=== PATIENT | female | born 1935 | race Caucasian/White ===

== ENCOUNTER → 2016-08-04 | Outpatient (CLI) | payer OTHER ==
[2016-08-04 11:27] LABS: Basophils # (auto) 0 uL; Basophils % (auto) 0.2 % (0.0-2.0); Eosinophils # (auto) 0 uL; Eosinophils % (auto) 0.8 % (0.0-7.0); Hematocrit 44.9 % (36.0-46.0); Hemoglobin 14.7 g/dL (12.2-16.2); Lymphocytes # (auto) 0.7 uL; Lymphocytes % (auto) 16.1 % (10.0-50.0); Mean Corpuscular Hemoglobin 28.7 pg (28.0-32.0); Mean Corpuscular Hgb Conc. 32.7 g/dL (32.0-36.0); Mean Corpuscular Volume 87.8 fL (80.0-100.0); Mean Platelet Volume 9.2 fL (7.4-10.4); Monocytes # (auto) 0.3 uL; Monocytes % (auto) 6.8 % (0.0-12.0); Neutrophils # (auto) 3.5 uL; Neutrophils % (auto) 76.1 % (37.0-80.0); Platelet Count (auto) 257 10^3/uL (140-450); Red Cell Distribution Width 15.8 % (11.6-16.0); SUSPECT VIEW TRANSMISSION; White Blood Cell 4.6 10^3/uL (4.4-10.8)
[2016-08-04 12:05] LABS: Albumin 3.9 g/dL (3.4-5.0); BUN/Creatinine Ratio 26.3; Bilirubin, Total 0.4 mg/dL (0.2-1.0); Calcium 9.3 mg/dL (8.5-10.1); Potassium 4.2 mmol/L (3.5-5.1)
== END | disposition home or self-care (01) ==
LOC: LAB 10:53
PROVIDERS: ATTEND Internal Medicine Gastroenterology
DX: K51.919 Ulcerative colitis, unspecified with unspecified complications (principal)
CPT/HCPCS: 36415; 80053; 85025; 86141

== ENCOUNTER → 2017-01-19 | Outpatient (CLI) | payer OTHER ==
[2017-01-19 11:44] LABS: Basophils # (auto) 0 uL; Basophils % (auto) 0.4 % (0.0-2.0); CONDITION Y; Eosinophils # (auto) 0 uL; Hematocrit 43.3 % (36.0-46.0); Hemoglobin 14.2 g/dL (12.2-16.2); Lymphocytes # (auto) 0.8 uL; Lymphocytes % (auto) 18.8 % (10.0-50.0); Mean Corpuscular Hemoglobin 28.3 pg (28.0-32.0); Mean Corpuscular Hgb Conc. 32.7 g/dL (32.0-36.0); Mean Corpuscular Volume 86.3 fL (80.0-100.0); Mean Platelet Volume 8.3 fL (7.4-10.4); Monocytes # (auto) 0.4 uL; Monocytes % (auto) 8.2 % (0.0-12.0); Neutrophils # (auto) 3.1 uL; Neutrophils % (auto) 71.6 % (37.0-80.0); Platelet Count (auto) 253 10^3/uL (140-450); Red Cell Distribution Width 16.5 % (11.6-16.0); White Blood Cell 4.3 10^3/uL (4.4-10.8)
[2017-01-19 12:10] LABS: Albumin 3.6 g/dL (3.4-5.0); BUN/Creatinine Ratio 20.8; Bilirubin, Total 0.3 mg/dL (0.2-1.0); Potassium 4.8 mmol/L (3.5-5.1); Total Protein 7.9 g/dL (6.4-8.2)
== END | disposition home or self-care (01) ==
LOC: LAB 11:30
DX: I10 Essential (primary) hypertension (principal); M06.9 Rheumatoid arthritis, unspecified; M25.50 Pain in unspecified joint; D64.9 Anemia, unspecified; Z79.899 Other long term (current) drug therapy
CPT/HCPCS: 36415; 80053; 85025; 85652; 86141

== ENCOUNTER → 2017-03-16 | Outpatient (CLI) | payer OTHER ==
[2017-03-16 12:13] LABS: Basophils # (auto) 0 uL; Basophils % (auto) 0.6 % (0.0-2.0); Eosinophils # (auto) 0 uL; Eosinophils % (auto) 0.7 % (0.0-7.0); Hematocrit 44.3 % (36.0-46.0); Hemoglobin 14.8 g/dL (12.2-16.2); Lymphocytes # (auto) 0.7 uL; Lymphocytes % (auto) 17.9 % (10.0-50.0); Mean Corpuscular Hemoglobin 29.5 pg (28.0-32.0); Mean Corpuscular Hgb Conc. 33.4 g/dL (32.0-36.0); Mean Corpuscular Volume 88.2 fL (80.0-100.0); Monocytes # (auto) 0.3 uL; Monocytes % (auto) 7.6 % (0.0-12.0); Neutrophils # (auto) 2.9 uL; Neutrophils % (auto) 73.2 % (37.0-80.0); Nucleated Red Blood Cells % 0.1 %; Platelet Count (auto) 249 10^3/uL (140-450); Red Cell Distribution Width 17.6 % (11.6-16.0)
[2017-03-16 12:37] LABS: Albumin 3.5 g/dL (3.4-5.0); BUN/Creatinine Ratio 18.9; Bilirubin, Total 0.4 mg/dL (0.2-1.0); Calcium 8.9 mg/dL (8.5-10.1); Potassium 4.6 mmol/L (3.5-5.1); Total Protein 7.9 g/dL (6.4-8.2)
== END | disposition home or self-care (01) ==
LOC: LAB 11:49
DX: I10 Essential (primary) hypertension (principal); M06.9 Rheumatoid arthritis, unspecified; D64.9 Anemia, unspecified; M25.50 Pain in unspecified joint; Z79.899 Other long term (current) drug therapy
CPT/HCPCS: 36415; 80053; 85025; 85652; 86141

== ENCOUNTER → 2017-04-30 | Outpatient (CLI) | payer OTHER ==
[2017-04-30 10:50] LABS: Cholesterol 178 mg/dL (< 200); HDL Cholesterol 66 mg/dL (40-59); LDL Cholesterol 111 mg/dL (< 100); Triglycerides 115 mg/dL (< 150)
== END | disposition home or self-care (01) ==
LOC: LAB 10:14
PROVIDERS: ATTEND Internal Medicine
DX: E78.9 Disorder of lipoprotein metabolism, unspecified (principal); M06.9 Rheumatoid arthritis, unspecified; R94.6 Abnormal results of thyroid function studies; E55.9 Vitamin D deficiency, unspecified
CPT/HCPCS: 36415; 80061; 82306; 84443

== ENCOUNTER → 2017-05-09 | Outpatient (CLI) | payer OTHER | END | disposition home or self-care (01) | LOC: LAB 13:59 | PROVIDERS: ATTEND Internal Medicine | DX: E78.9 Disorder of lipoprotein metabolism, unspecified (principal); M06.9 Rheumatoid arthritis, unspecified | CPT/HCPCS: 82270 ==

== ENCOUNTER → 2017-10-23 | Outpatient (CLI) | payer OTHER | END | disposition home or self-care (01) | LOC: LAB 11:02 | PROVIDERS: ATTEND Physician Assistant | DX: L72.3 Sebaceous cyst (principal) ==

== ENCOUNTER → 2018-02-13 | Outpatient (CLI) | payer OTHER ==
[2018-02-13 14:05] LABS: Basophils # (auto) 0 uL; Basophils % (auto) 0.3 % (0.0-2.0); Eosinophils # (auto) 0 uL; Eosinophils % (auto) 0.7 % (0.0-7.0); Hematocrit 46.1 % (36.0-46.0); Hemoglobin 15.4 g/dL (12.2-16.2); Lymphocytes % (auto) 17.4 % (10.0-50.0); Mean Corpuscular Hemoglobin 28.4 pg (28.0-32.0); Mean Corpuscular Hgb Conc. 33.3 g/dL (32.0-36.0); Mean Corpuscular Volume 85.1 fL (80.0-100.0); Monocytes # (auto) 0.3 uL; Neutrophils # (auto) 4.3 uL; Neutrophils % (auto) 76.6 % (37.0-80.0); Platelet Count (auto) 204 10^3/uL (140-450); Red Blood Cells 5.41 10^6/uL (4.0-5.20); Red Cell Distribution Width 15.1 % (11.8-14.3); White Blood Cell 5.6 10^3/uL (4.4-10.8)
[2018-02-13 15:23] LABS: Albumin 3.3 g/dL (3.4-5.0); BUN/Creatinine Ratio 10.8; Bilirubin, Total 0.5 mg/dL (0.2-1.0); CRP High Sensitivity 2.64 mg/dL (< 0.3); Calcium 8.7 mg/dL (8.5-10.1); Potassium 3.7 mmol/L (3.5-5.1); Total Protein 8.1 g/dL (6.4-8.2)
== END | disposition home or self-care (01) ==
LOC: LAB 13:48
PROVIDERS: ATTEND Internal Medicine
DX: M06.9 Rheumatoid arthritis, unspecified (principal); I10 Essential (primary) hypertension
CPT/HCPCS: 36415; 80053; 85025; 85652; 86141

== ENCOUNTER → 2018-03-12 | Outpatient (CLI) | payer OTHER ==
[2018-03-12 10:54] LABS: Basophils # (auto) 0.1 uL; Basophils % (auto) 0.7 % (0.0-2.0); Eosinophils # (auto) 0 uL; Eosinophils % (auto) 0.4 % (0.0-7.0); Hematocrit 41.1 % (36.0-46.0); Hemoglobin 13.5 g/dL (12.2-16.2); Lymphocytes # (auto) 0.8 uL; Lymphocytes % (auto) 10.5 % (10.0-50.0); Mean Corpuscular Hemoglobin 27.7 pg (28.0-32.0); Mean Corpuscular Hgb Conc. 32.9 g/dL (32.0-36.0); Mean Corpuscular Volume 84.1 fL (80.0-100.0); Monocytes # (auto) 0.4 uL; Monocytes % (auto) 5.4 % (0.0-12.0); Neutrophils # (auto) 6.6 uL; Platelet Count (auto) 430 10^3/uL (140-450); Red Blood Cells 4.89 10^6/uL (4.0-5.20); Red Cell Distribution Width 14.1 % (11.8-14.3)
[2018-03-12 11:30] LABS: Albumin 2.6 g/dL (3.4-5.0); BUN/Creatinine Ratio 19.7; Bilirubin, Total 0.5 mg/dL (0.2-1.0); CRP High Sensitivity 14.9 mg/dL (< 0.3); Calcium 9.3 mg/dL (8.5-10.1); Potassium 4.2 mmol/L (3.5-5.1); Total Protein 8.5 g/dL (6.4-8.2)
== END | disposition home or self-care (01) ==
LOC: LAB 10:13
PROVIDERS: ATTEND Internal Medicine
DX: Z12.11 Encounter for screening for malignant neoplasm of colon (principal); M06.9 Rheumatoid arthritis, unspecified; J44.9 Chronic obstructive pulmonary disease, unspecified; E55.9 Vitamin D deficiency, unspecified; E78.5 Hyperlipidemia, unspecified
CPT/HCPCS: 36415; 80053; 80061; 82043; 82274; 82306; 83036; 84443; 85025; 85652; 86141

== ENCOUNTER → 2018-05-06 | Outpatient (CLI) | payer OTHER ==
[2018-05-06 13:08] LABS: Basophils # (auto) 0 uL; Basophils % (auto) 0.2 % (0.0-2.0); Eosinophils # (auto) 0.1 uL; Eosinophils % (auto) 0.9 % (0.0-7.0); Hemoglobin 11.9 g/dL (12.2-16.2); Lymphocytes # (auto) 0.9 uL; Lymphocytes % (auto) 17.2 % (10.0-50.0); Mean Corpuscular Hemoglobin 27.5 pg (28.0-32.0); Mean Corpuscular Hgb Conc. 32.2 g/dL (32.0-36.0); Mean Corpuscular Volume 85.4 fL (80.0-100.0); Monocytes # (auto) 0.2 uL; Monocytes % (auto) 4.1 % (0.0-12.0); Neutrophils # (auto) 4.1 uL; Neutrophils % (auto) 77.6 % (37.0-80.0); Nucleated Red Blood Cells % 0.2 %; Platelet Count (auto) 406 10^3/uL (140-450); Red Blood Cells 4.34 10^6/uL (4.0-5.20); Red Cell Distribution Width 18.9 % (11.8-14.3); White Blood Cell 5.3 10^3/uL (4.4-10.8)
== END | disposition home or self-care (01) ==
LOC: LAB 11:51
PROVIDERS: ATTEND Internal Medicine Gastroenterology
DX: K51.912 Ulcerative colitis, unspecified with intestinal obstruction (principal)
CPT/HCPCS: 36415; 85025

== ENCOUNTER → 2018-11-19 | Outpatient (CLI) | payer OTHER ==
[2018-11-19 16:30] LABS: Basophils # (auto) 0 uL; Basophils % (auto) 0.5 % (0.0-2.0); Eosinophils # (auto) 0 uL; Eosinophils % (auto) 0.8 % (0.0-7.0); Hematocrit 41.3 % (36.0-46.0); Hemoglobin 13.4 g/dL (12.2-16.2); Lymphocytes # (auto) 0.9 uL; Lymphocytes % (auto) 21.7 % (10.0-50.0); Mean Corpuscular Hemoglobin 28.7 pg (28.0-32.0); Mean Corpuscular Hgb Conc. 32.6 g/dL (32.0-36.0); Monocytes # (auto) 0.3 uL; Monocytes % (auto) 5.9 % (0.0-12.0); Neutrophils # (auto) 3.1 uL; Neutrophils % (auto) 71.1 % (37.0-80.0); Platelet Count (auto) 253 10^3/uL (140-450); Red Blood Cells 4.69 10^6/uL (4.0-5.20); Red Cell Distribution Width 17.5 % (11.8-14.3); White Blood Cell 4.4 10^3/uL (4.4-10.8)
[2018-11-19 16:42] LABS: Albumin 3.3 g/dL (3.4-5.0); BUN/Creatinine Ratio 20.6; Calcium 8.8 mg/dL (8.5-10.1); Potassium 4.2 mmol/L (3.5-5.1)
[2018-11-19 16:45] LABS: Bilirubin, Total 0.4 mg/dL (0.2-1.0); Total Protein 7.9 g/dL (6.4-8.2)
== END | disposition home or self-care (01) ==
LOC: LAB 15:41
PROVIDERS: ATTEND Internal Medicine Gastroenterology
DX: K51.912 Ulcerative colitis, unspecified with intestinal obstruction (principal)
CPT/HCPCS: 36415; 80053; 85025

== ENCOUNTER → 2019-05-19 | Outpatient (CLI) | payer OTHER ==
[2019-05-19 16:09] LABS: Basophils # (auto) 0 uL; Basophils % (auto) 0.4 % (0.0-2.0); Eosinophils # (auto) 0 uL; Eosinophils % (auto) 0.7 % (0.0-7.0); Hematocrit 42.9 % (36.0-46.0); Hemoglobin 14.1 g/dL (12.2-16.2); Lymphocytes # (auto) 0.9 uL; Lymphocytes % (auto) 18.8 % (10.0-50.0); Mean Corpuscular Hemoglobin 28.5 pg (28.0-32.0); Mean Corpuscular Hgb Conc. 32.9 g/dL (32.0-36.0); Mean Corpuscular Volume 86.5 fL (80.0-100.0); Monocytes # (auto) 0.3 uL; Monocytes % (auto) 7.5 % (0.0-12.0); Neutrophils # (auto) 3.3 uL; Neutrophils % (auto) 72.6 % (37.0-80.0); Platelet Count (auto) 271 10^3/uL (140-450); Red Blood Cells 4.96 10^6/uL (4.0-5.20); White Blood Cell 4.6 10^3/uL (4.4-10.8)
[2019-05-19 16:28] LABS: Albumin 3.3 g/dL (3.4-5.0); Calcium 9.4 mg/dL (8.5-10.1); Potassium 3.9 mmol/L (3.5-5.1)
[2019-05-19 16:31] LABS: BUN/Creatinine Ratio 18.8; Bilirubin, Total 0.2 mg/dL (0.2-1.0); Total Protein 7.7 g/dL (6.4-8.2)
== END | disposition home or self-care (01) ==
LOC: LAB 15:36
PROVIDERS: ATTEND Internal Medicine Gastroenterology
DX: K51.919 Ulcerative colitis, unspecified with unspecified complications (principal)
CPT/HCPCS: 36415; 80053; 85025

== ENCOUNTER → 2019-12-15 | Outpatient (CLI) | payer OTHER ==
[2019-12-15 14:01] LABS: Basophils # (auto) 0 10 ^3/uL (0-0.2); Basophils % (auto) 0.6 % (0.0-2.0); Eosinophils # (auto) 0 10 ^3/uL (0-0.8); Eosinophils % (auto) 0.5 % (0.0-7.0); Hematocrit 45.6 % (36.0-46.0); Hemoglobin 14.8 g/dL (12.2-16.2); Lymphocytes % (auto) 15.6 % (10.0-50.0); Mean Corpuscular Hemoglobin 27.2 pg (28.0-32.0); Mean Corpuscular Hgb Conc. 32.3 g/dL (32.0-36.0); Mean Corpuscular Volume 84.1 fL (80.0-100.0); Monocytes # (auto) 0.4 10 ^3/uL (0-1.3); Monocytes % (auto) 5.7 % (0.0-12.0); Neutrophils % (auto) 77.6 % (37.0-80.0); Nucleated Red Blood Cells % 0.1 %; Platelet Count (auto) 249 10^3/uL (140-450); Red Blood Cells 5.42 10^6/uL (4.0-5.20); Red Cell Distribution Width 17.6 % (11.8-14.3); White Blood Cell 6.4 10^3/uL (4.4-10.8)
[2019-12-15 14:35] LABS: Albumin 3.5 g/dL (3.4-5.0); BUN/Creatinine Ratio 19.2; Calcium 9.5 mg/dL (8.5-10.1); Potassium 4.5 mmol/L (3.5-5.1)
[2019-12-15 14:38] LABS: Bilirubin, Total 0.5 mg/dL (0.2-1.0); Total Protein 8.2 g/dL (6.4-8.2)
== END | disposition home or self-care (01) ==
LOC: LAB 13:34
PROVIDERS: ATTEND Internal Medicine Gastroenterology
DX: K51.919 Ulcerative colitis, unspecified with unspecified complications (principal)
CPT/HCPCS: 36415; 80053; 85025

== ENCOUNTER → 2020-01-29 | Outpatient (CLI) | payer OTHER ==
[~2020-01-29] MED LIST: ATO40T PO; CHOL20009 PO; CITA-30 PO; ESTR1TAB5 PO; MULT0.07 PO
[2020-01-29 13:16] LABS: Cholesterol 253 mg/dL (< 200); HDL Cholesterol 54 mg/dL (40-59); LDL Cholesterol 168 mg/dL (< 100); Triglycerides 141 mg/dL (< 150)
== END | disposition home or self-care (01) ==
LOC: LAB 11:46
PROVIDERS: ATTEND Internal Medicine
DX: E78.49 Other hyperlipidemia (principal); R30.0 Dysuria; M06.9 Rheumatoid arthritis, unspecified
CPT/HCPCS: 36415; 80061; 82306; 84443

== ENCOUNTER → 2020-02-03 | Outpatient (CLI) | payer OTHER | END | disposition home or self-care (01) | LOC: LAB 13:53 | PROVIDERS: ATTEND Surgery | DX: K51.919 Ulcerative colitis, unspecified with unspecified complications (principal) | CPT/HCPCS: 82274; 87086 ==

== ENCOUNTER 2020-03-10 12:06 | Inpatient (IN) | payer OTHER ==
[~2020-03-10] VITALS: Ht 160 cm; Wt 60.2 kg
[2020-03-10 12:49] LABS: Basophils # (auto) 0 10 ^3/uL (0-0.2); Basophils % (auto) 0.3 % (0.0-2.0); Eosinophils # (auto) 0 10 ^3/uL (0-0.8); Hematocrit 43.5 % (36.0-46.0); Hemoglobin 14.2 g/dL (12.2-16.2); Lymphocytes # (auto) 0.9 10 ^3/uL (0.4-5.4); Lymphocytes % (auto) 11.3 % (10.0-50.0); Mean Corpuscular Hemoglobin 27.2 pg (28.0-32.0); Mean Corpuscular Hgb Conc. 32.8 g/dL (32.0-36.0); Mean Corpuscular Volume 82.9 fL (80.0-100.0); Monocytes # (auto) 0.6 10 ^3/uL (0-1.3); Monocytes % (auto) 7.9 % (0.0-12.0); Neutrophils # (auto) 6.2 10 ^3/uL (1.6-8.6); Neutrophils % (auto) 80.5 % (37.0-80.0); Platelet Count (auto) 324 10^3/uL (140-450); Red Blood Cells 5.24 10^6/uL (4.0-5.20); Red Cell Distribution Width 15.6 % (11.8-14.3); White Blood Cell 7.7 10^3/uL (4.4-10.8)
[2020-03-10 13:08] LABS: Albumin 2.8 g/dL (3.4-5.0); Calcium 9.4 mg/dL (8.5-10.1)
[2020-03-10 13:11] LABS: Amylase 21 U/L (25-115); Lipase 55 U/L (73-393); Magnesium 2.5 mg/dL (1.6-2.6)
[2020-03-10 13:13] LABS: BUN/Creatinine Ratio 24.7; Bilirubin, Total 0.7 mg/dL (0.2-1.0); INR 1.08 (0.9-1.15); Total Protein 8.2 g/dL (6.4-8.2)
[2020-03-10] MEDS ORDERED: ONDANSETRON HCL 4 MG/2 ML VIAL IV ONE (15:45)
[2020-03-10] MEDS ORDERED: cefTRIAXone 1GM/50ML D5W 50 ML IV ONE (15:45)
[2020-03-10] MEDS ORDERED: metroNIDAZOLE 500MG/100ML 100 ML IV ONE (15:45)
[2020-03-10] MEDS ORDERED: MORPHINE SULF INJ 2 MG/ML SYRINGE 1ML IV ONE (15:45)
[2020-03-10] MEDS ORDERED: ALUM & MAG HYDROX-SIMETH LIQ(MAALOX) 30 ML PO PRN (16:15)
[2020-03-10] MEDS ORDERED: LACTATED RINGER'S 1,000 ML IV ONE (16:15)
[2020-03-10] MEDS ORDERED: MORPHINE SULF INJ 2 MG/ML SYRINGE 1ML IV PRN (16:15)
[2020-03-10] MEDS ORDERED: LORazepam 0.5 MG TAB PO PRN (16:15)
[2020-03-10] MEDS ORDERED: NITROGLYCERIN 0.4 MG SL TAB SL PRN (16:15)
[2020-03-10] MEDS ORDERED: HYDROcodone-ACET 5/325MG TAB PO PRN (16:15)
[2020-03-10] MEDS ORDERED: ACETAMINOPHEN 325 MG TAB PO PRN (16:15)
[2020-03-10] MEDS ORDERED: DOCUSATE SOD 100 MG CAP PO PRN (16:15)
[2020-03-10 17:00] LABS: Amphetamine Screen, Urine NEGATIVE (NEGATIVE); Barbiturate Scree,Urine NEGATIVE (NEGATIVE); Benzodiazephine Screen, Urine NEGATIVE (NEGATIVE); Cannabinoid Screen, Urine POSITIVE (NEGATIVE); Cocaine Screen, Urine NEGATIVE (NEGATIVE); Opiate Scree,Urine NEGATIVE (NEGATIVE); Phencyclidine Screen, Urine NEGATIVE (NEGATIVE)
[2020-03-10] MEDS ORDERED: ESTR1TAB5 PO (17:17)
[2020-03-10] MEDS ORDERED: ATO40T PO (17:17)
[2020-03-10] MEDS ORDERED: CITA-30 PO (17:17)
[2020-03-10] MEDS ORDERED: MULT0.07 PO (17:21)
[2020-03-10] MEDS ORDERED: CHOL20009 PO (17:21)
[2020-03-10 17:38] LABS: Urine Bacteria NONE SEEN /hpf (None Seen); Urine Blood 2+ /uL (Negative); Urine Mucus MODERATE (None Seen); Urine WBC 2419 /hpf (0 - 5); Urine WBC Clumps PRESENT /hpf (None Seen)
[2020-03-10 17:39] LABS: Urine Specific Gravity 1.025 (1.001-1.035)
[2020-03-10] MEDS: SODIUM CHLORIDE 0.9% 1,000 ML IV SCH (18:22)
[2020-03-10] MEDS: MORPHINE SULF INJ 2 MG/ML SYRINGE 1ML IV PRN (20:05)
[2020-03-10] MEDS: metroNIDAZOLE 500MG/100ML 100 ML IV SCH (22:00)
[2020-03-10] MEDS: FAMOTIDINE (10MG/ML) 2ML VL IV SCH (22:18)
--- NOTE | 2020-03-10 22:34 | NUR ---
Telemetry admit from [place] admitted to Telemetry unit. Patient oriented to Monse Paredes RN primary RN, unit, room, bed, and unit policies regarding patient care and visiting hours. Patient now on continuous telemetry monitoring, tele box #37. Patient weighed by bedscale and encouraged to call if they need something. All questions and concerns addressed, patient verbalized understanding. NG tube connected to low continuous suction. Bed is in lowest locked position with bed rails up x2 and call light is within reach of the patient. Patient understands that she is NPO.
[2020-03-10 22:44] LABS: Cholesterol 143 mg/dL (< 200); HDL Cholesterol 34 mg/dL (40-59); LDL Cholesterol 97 mg/dL (< 100); Triglycerides 88 mg/dL (< 150)
--- NOTE | 2020-03-10 22:45 | NUR ---
Flagyl: Administered remainder of the Flagyl after patient brought up from the ER. Patient tolerated well.
[2020-03-10 23:00] VITALS: BP 126/75
[2020-03-11] MEDS: MORPHINE SULF INJ 2 MG/ML SYRINGE 1ML IV PRN ×5 (00:23→20:08)
[2020-03-11 05:00] VITALS: BP 129/62
[2020-03-11] MEDS: metroNIDAZOLE 500MG/100ML 100 ML IV SCH ×3 (05:29→21:42)
[2020-03-11] MEDS: SODIUM CHLORIDE 0.9% 1,000 ML IV SCH ×2 (05:30→20:12)
--- NOTE | 2020-03-11 08:00 | NUR ---
Opening Shift Note Assumed care of patient, awake, alert and oriented X4. No S/S of distress/SOB, complains of generalized abdominal pain, 8/10, informed will medicate with prescribed pain medication when due, verbalized understanding. Tele# 37, sinus rhythm @ 69 bpm. Right nare NGT to LIS, draining brown drainage. IV to left antecubital, 20 gauge, patent and infusing 0.9% NS @ 75 ml/hr. Instructed on POC and to call for assist PRN, verbalized understanding. Bed locked, in lowest position, call light within reach, will continue to monitor for changes Q1hr and PRN.
[2020-03-11 09:00] VITALS: BP 117/63
--- NOTE | 2020-03-11 09:50 | NUR ---
ROUNDS Dr Huerta at bedside for rounds, new orders received and followed through. Patient updated on plan of care, verbalized understanding.
[2020-03-11] MEDS: CITALOPRAM HYDROBR 20 MG TAB PO SCH (10:00)
[2020-03-11] MEDS: CHOLECALCIFEROL (VITD3) 2,000 UNIT CAP PO SCH (10:00)
[2020-03-11] MEDS: levoFLOXacin 500MG 100 ML IV SCH (10:18)
[2020-03-11] MEDS: FAMOTIDINE (10MG/ML) 2ML VL IV SCH ×2 (10:18→21:42)
--- NOTE | 2020-03-11 12:30 | NUR ---
PICC line placement Patient/Patient significant other educated on need for PICC line placement. All risks and benefits explained and all questions and concerns addressed prior to procedure. Noted past medical history and allergies with no contraindications. INR and Plt counts within acceptable range. 5 fr PICC line inserted via RIGHT BASILIC vein using [facility] [employer] US and Tip Location System. Sterile technique with maximum barrier precautions utilized. Blood return obtained from each of DOUBLE lumens and each flushed easily with NS using proper technique. PICC secured with Stat-lock; biodisc and occlusive dressing applied. Stat portable chest x-ray obtained for PICC tip placement. *Baseline Arm Circumference 21CM. *INTERNAL LENGHT 37 CM *EXTERNAL LENGHT 0 CM *PICC lot # [id number]. Note:
[2020-03-11] MEDS ORDERED: LIDOCAINE 1% (LOCAL ANESTH.) PF 5ml SDV ID ONE (12:45)
[2020-03-11 13:00] VITALS: BP 137/71
--- NOTE | 2020-03-11 13:39 | NUR ---
OK to use PICC line Xray completed. OK to use PICC line. Jenna BRYANT notified.
--- NOTE | 2020-03-11 14:24 | NUR ---
Nutrition Assessment Notes Please refer to link for full assessment notes. Est Energy needs: 8227-4811 kcals (23-25 kcal/kgBW) Est Protein needs: 48-52 gms/day (1.0-1.1 gm/kgBW) Will continue to monitor and reassess prn. Addendum: 03/11/20 at [address] Amended: Links added.
[2020-03-11 17:00] VITALS: BP 124/66
--- NOTE | 2020-03-11 17:54 | NUR ---
GI Dr Milad Chang at bedside for GI consult, new orders received and followed through. Patient updated on plan of care, verbalized understanding.
[2020-03-11] MEDS ORDERED: CLINIMIX PER PHARMACY 0 ML IV SCH (18:00)
--- NOTE | 2020-03-11 19:17 | NUR ---
Care endorsed to MANNY Shea, night nurse.
--- NOTE | 2020-03-11 19:45 | NUR ---
Opening Shift Note Assumed care of patient, awake and alert. No S/S of distress/SOB noted. NG tube connected to LCS. Bed is in lowest locked position with bed rails up x2 and call light is within reach. Instructed on POC and to call for assist PRN.
[2020-03-11] MEDS ORDERED: AMINO ACID INFUSION IN D5W 2,000 ML IV NR (20:00)
[2020-03-11] MEDS: SODIUM CHLOR 0.9% PF (SALINE LOCK) 10ML VIAL/SYR IV SCH (21:42)
[2020-03-11] MEDS: ATORVASTATIN 20 MG TAB PO SCH (21:42)
[2020-03-11] MEDS: ONDANSETRON HCL 4 MG/2 ML VIAL IV PRN (21:55)
[2020-03-11 22:00] VITALS: BP 120/65
[2020-03-11] MEDS: InsuLIN REG 1unit/0.01ml Soln (100units/ml) SC SCH (23:58)
[2020-03-11] MEDS: ACCU-CHEK COMFORT CURVE STRIP VI SCH (23:58)
[2020-03-12] MEDS ORDERED: DEXTROSE (50%) 50ML SYRG IV SCH
[2020-03-12] MEDS: MORPHINE SULF INJ 2 MG/ML SYRINGE 1ML IV PRN ×5 (00:09→20:18)
[2020-03-12 04:55] VITALS: BP 141/74
[2020-03-12] MEDS: ACCU-CHEK COMFORT CURVE STRIP VI SCH ×4 (05:23→23:51)
[2020-03-12] MEDS: InsuLIN REG 1unit/0.01ml Soln (100units/ml) SC SCH ×4 (05:23→23:52)
[2020-03-12] MEDS: metroNIDAZOLE 500MG/100ML 100 ML IV SCH ×3 (05:38→21:38)
[2020-03-12 06:19] LABS: Basophils # (auto) 0 10 ^3/uL (0-0.2); Basophils % (auto) 0.4 % (0.0-2.0); Eosinophils # (auto) 0 10 ^3/uL (0-0.8); Eosinophils % (auto) 0.3 % (0.0-7.0); Hematocrit 38.6 % (36.0-46.0); Hemoglobin 12.5 g/dL (12.2-16.2); Lymphocytes # (auto) 0.8 10 ^3/uL (0.4-5.4); Mean Corpuscular Hemoglobin 27.1 pg (28.0-32.0); Mean Corpuscular Hgb Conc. 32.5 g/dL (32.0-36.0); Mean Corpuscular Volume 83.5 fL (80.0-100.0); Monocytes # (auto) 0.5 10 ^3/uL (0-1.3); Monocytes % (auto) 8.3 % (0.0-12.0); Neutrophils # (auto) 5.1 10 ^3/uL (1.6-8.6); Platelet Count (auto) 244 10^3/uL (140-450); Red Blood Cells 4.62 10^6/uL (4.0-5.20); Red Cell Distribution Width 15.6 % (11.8-14.3); White Blood Cell 6.4 10^3/uL (4.4-10.8)
[2020-03-12 06:37] LABS: Albumin 2.2 g/dL (3.4-5.0); Calcium 8.1 mg/dL (8.5-10.1); Magnesium 2.1 mg/dL (1.6-2.6); Potassium 3.6 mmol/L (3.5-5.1)
[2020-03-12 06:41] LABS: BUN/Creatinine Ratio 22.2; Bilirubin, Total 0.4 mg/dL (0.2-1.0); Phosphorus 2.4 mg/dL (2.5-4.90); Total Protein 6.5 g/dL (6.4-8.2)
--- NOTE | 2020-03-12 07:35 | NUR ---
opening note Assumed care of patient from NOC RN. Patient is Aox4 no s/s of distress noted. Bed is in lowest locked position, call light within reach, and side rails up x2. NGT set to low continuous suction. Barnett draining to gravity, patent. Updated patient on plan of care and patient verbalized understanding. Will continue to monitor q1hr and PRN.
[2020-03-12] MEDS: SODIUM CHLORIDE 0.9% 1,000 ML IV SCH (08:01)
[2020-03-12] MEDS ORDERED: OMNIPAQUE ORAL SOLN 500ml 12mg/ml PO ONE (08:18)
--- NOTE | 2020-03-12 08:36 | NUR ---
paged Dr. Nicolas Chang Left message with Dr. Milad Alcaraz office regarding oral contrast for procedure. Awaiting call back.
[2020-03-12 09:00] VITALS: BP 134/68
--- NOTE | 2020-03-12 09:07 | NUR ---
RECEIVED CALL BACK Received call back from Dr. Milad Chang. Per MD low continuous suction can be stopped so patient can ingest contrast. Will follow through.
--- NOTE | 2020-03-12 09:15 | NUR ---
Physician rounding Dr. Huerta at bedside. MD updated patient on plan of care, patient verbalized understanding.
[2020-03-12] MEDS ORDERED: POTASSIUM PHOSPHATE IV ONE (09:30)
[2020-03-12] MEDS ORDERED: SODIUM CHL 0.9% IV ONE (09:30)
[2020-03-12] MEDS: CITALOPRAM HYDROBR 20 MG TAB PO SCH (10:00)
[2020-03-12] MEDS: CHOLECALCIFEROL (VITD3) 2,000 UNIT CAP PO SCH (10:00)
--- NOTE | 2020-03-12 10:50 | NUR ---
Physician rounding Dr. Thomas at bedside. MD updated patient on plan of care and patient verbalized understanding. New orders received, per MD NGT can be removed. Will notify Dr. Nicolas lama.
[2020-03-12] MEDS: SODIUM CHLOR 0.9% PF (SALINE LOCK) 10ML VIAL/SYR IV SCH ×2 (10:58→21:39)
[2020-03-12] MEDS: levoFLOXacin 500MG 100 ML IV SCH (10:58)
[2020-03-12] MEDS: FAMOTIDINE (10MG/ML) 2ML VL IV SCH ×2 (10:58→21:38)
--- NOTE | 2020-03-12 11:16 | NUR ---
Delta Chang. Awaiting call back.
[2020-03-12] MEDS ORDERED: IOHEXOL 300 MG/ML 100ML BOTTLE IJ ONE (11:22)
--- NOTE | 2020-03-12 11:36 | NUR ---
patient off unit patient taken via wheel chair to procedure.
--- NOTE | 2020-03-12 12:19 | NUR ---
Called Called Dr. Huerta regarding PICC line. Per MD he will return call.
--- NOTE | 2020-03-12 12:20 | NUR ---
Paged PICC nurse Paged PICC line nurse regarding PICC lumen not flushing. Awaiting call back.
--- NOTE | 2020-03-12 12:24 | NUR ---
Received call Received call back from PICC line RN Hawa. Per RN recommended cath flow order from .
--- NOTE | 2020-03-12 12:30 | NUR ---
IV insertion IV access obtained, via clean sterile technique by inserting 22 gauge catheter at left forearm after 1 attempt. IV secured properly. No trauma to site. Patient tolerated well.
--- NOTE | 2020-03-12 12:44 | NUR ---
Received call from radiology Per Dede from radiology Dr. Colby stated that Gastrografin enema cannot be done, is recommending tap water enema prior to Gastrografin. Will notify Dr. Thomas. Dr. Colby extension is [phone]
[2020-03-12] MEDS ORDERED: TPN PER PHARMACY 0 ML IV SCH (12:45)
--- NOTE | 2020-03-12 12:54 | NUR ---
Delta keith. Awaiting call back.
[2020-03-12 13:00] VITALS: BP 147/78
--- NOTE | 2020-03-12 13:33 | NUR ---
Received call back Dr. Huerta provided new orders, will follow thorough.
[2020-03-12] MEDS ORDERED: CATHFLO ACTIVASE (ALTEPLASE) 2 MG VIAL IV ONE (13:45)
--- NOTE | 2020-03-12 14:02 | NUR ---
assessment Patient is a 84 year old female who is alert and oriented. Per patients daughter Ana Maria prior to admission patient lived home with her boyfriend and was independent. Per Ana Maria patient will return home with her on discharge while she recovers. Ana Maria informed me she brought patient to ER for weakness and constipation. Patients PCP is Dr Patricia Saldana. Patient has a cane for home use. I informed Ana Maria I will continue to monitor and follow up as appropriate for any post discharge needs. Ana Maria verbalized understanding. Addendum: 03/12/20 at 1405 by Cielo MARISCAL Amended: Links added.
--- NOTE | 2020-03-12 14:19 | NUR ---
Cath flow removed from picc line lumen, and line is now patent. No s/s of distress noted.
--- NOTE | 2020-03-12 14:20 | NUR ---
Received call back Spoke with Dr. Thomas, updated him regarding Gastrografin enema, and Dr. Colby suggesting tap water enema. Per MD tap water enema can be given.
--- NOTE | 2020-03-12 15:58 | NUR ---
NGT removal NGT removed per MD/[employer] order following explanation and instruction to patient. Patient verbalized understanding prior to removal. Patient tolerated well.
[2020-03-12 17:00] VITALS: BP 144/73
--- NOTE | 2020-03-12 17:24 | NUR ---
Tap water enema Tap water enema given to patient, patient only tolerated 300ml of fluid. Patient stated "It hurts too much, I cant get more liquid in me." Educated patient on importance of receiving tap water enema, patient verbalized understanding but still refusing.
--- NOTE | 2020-03-12 19:35 | NUR ---
Opening Shift Note Assumed care of patient, awake and alert. No S/S of distress/SOB or pain. Instructed on POC and to call for assist PRN, will continue to monitor for changes Q1hr and PRN.
--- NOTE | 2020-03-12 19:45 | NUR ---
end of shift note endorsed care to NOC MANNY Billingsley.. No s/s of distress noted.
[2020-03-12] MEDS ORDERED: CLINIMIX PER PHARMACY IV NR (20:00)
[2020-03-12] MEDS: ATORVASTATIN 20 MG TAB PO SCH (21:39)
[2020-03-12 22:00] VITALS: BP 146/77
[2020-03-13 05:00] VITALS: BP 143/72
[2020-03-13] MEDS: ACCU-CHEK COMFORT CURVE STRIP VI SCH ×3 (05:31→18:33)
[2020-03-13] MEDS: metroNIDAZOLE 500MG/100ML 100 ML IV SCH ×3 (05:31→21:56)
[2020-03-13] MEDS: InsuLIN REG 1unit/0.01ml Soln (100units/ml) SC SCH ×3 (05:31→18:00)
[2020-03-13] MEDS: MORPHINE SULF INJ 2 MG/ML SYRINGE 1ML IV PRN ×2 (05:35→12:11)
[2020-03-13 06:27] LABS: Basophils # (auto) 0 10 ^3/uL (0-0.2); Eosinophils # (auto) 0 10 ^3/uL (0-0.8); Hemoglobin 12.4 g/dL (12.2-16.2); Lymphocytes # (auto) 0.7 10 ^3/uL (0.4-5.4); Monocytes # (auto) 0.4 10 ^3/uL (0-1.3); Red Cell Distribution Width 15.2 % (11.8-14.3); White Blood Cell 4.5 10^3/uL (4.4-10.8)
[2020-03-13 06:29] LABS: Basophils % (auto) 0.8 % (0.0-2.0); Eosinophils % (auto) 1.1 % (0.0-7.0); Hematocrit 37.8 % (36.0-46.0); Lymphocytes % (auto) 16.4 % (10.0-50.0); Mean Corpuscular Hemoglobin 27.2 pg (28.0-32.0); Mean Corpuscular Hgb Conc. 32.8 g/dL (32.0-36.0); Mean Corpuscular Volume 82.9 fL (80.0-100.0); Monocytes % (auto) 9.8 % (0.0-12.0); Neutrophils # (auto) 3.2 10 ^3/uL (1.6-8.6); Neutrophils % (auto) 71.9 % (37.0-80.0); Platelet Count (auto) 224 10^3/uL (140-450); Red Blood Cells 4.57 10^6/uL (4.0-5.20)
[2020-03-13 06:39] LABS: Magnesium 2.1 mg/dL (1.6-2.6); Potassium 3.4 mmol/L (3.5-5.1)
[2020-03-13 06:43] LABS: BUN/Creatinine Ratio 22.4; Bilirubin, Total 0.2 mg/dL (0.2-1.0); Phosphorus 2.1 mg/dL (2.5-4.90); Total Protein 5.9 g/dL (6.4-8.2)
[2020-03-13 09:00] VITALS: BP 133/77
[2020-03-13] MEDS: CITALOPRAM HYDROBR 20 MG TAB PO SCH (10:00)
[2020-03-13] MEDS: CHOLECALCIFEROL (VITD3) 2,000 UNIT CAP PO SCH (10:00)
--- NOTE | 2020-03-13 11:25 | NUR ---
DR. KELSEY IN TO SEE PT. MADE AWARE OF HARDENED PROTRUSION TO HALLUX
[2020-03-13] MEDS: FAMOTIDINE (10MG/ML) 2ML VL IV SCH ×2 (11:32→21:56)
[2020-03-13] MEDS: levoFLOXacin 500MG 100 ML IV SCH (11:32)
[2020-03-13] MEDS: SODIUM CHLOR 0.9% PF (SALINE LOCK) 10ML VIAL/SYR IV SCH ×2 (11:33→21:56)
--- NOTE | 2020-03-13 11:39 | NUR ---
Nutrition Followup Notes (new PN) Wt: 50.33 kg Pt was sleeping with no family by bedside. per records pt with diverticular perforation. pt is currently NPO now initiated on PN support @ 50 ml/hr providing 340 kcals and 42 gm proteins 172 kcals NCP. pt with inadequate PN support Est Energy needs BW 50 [id number] kcals (25-30 kcal/kgBW), Est Protein needs: 50-60gms/day (1.0-1.2 gm/kgBW). reassessed Will continue to monitor and reassess prn. LABS: GLU 111 H ALB 2.0 L, PREALB 6.2 L, TG wnl GI: Pt has no BM per RN doc BS: 18 mod risk. Refer to wound assessment report for full details. PES: 1) Increased nutrient needs aeb pt is NPO r/t pt with no PO intake 2) Inadequate oral intake aeb pt wt. loss of >10lbs in 1 month r/t pt loss of appetite, immobility and continued constipation Comments: Will continue to monitor NPO status, PN tolerance, skin status, pertinent labs and weight trends. Will f/u in 2-3 days. 1) advance PN support to meet > 75% of needs. 2) Gradually advance pt to oral diet when medically feasible and as tolerated. 3) Continue current plan of care
[2020-03-13] MEDS ORDERED: POTASSIUM PHOSPHATE 22 MEQ in SODIUM CHL 0.9% 100 ML IV ONE (12:45)
[2020-03-13 13:00] VITALS: BP 140/72
[2020-03-13 17:00] VITALS: BP 128/75
[2020-03-13] MEDS ORDERED: TPN PER PHARMACY IV NR ×8 (20:00)
[2020-03-13] MEDS: ATORVASTATIN 20 MG TAB PO SCH (21:57)
[2020-03-13 22:00] VITALS: BP 133/71
[2020-03-14] MEDS: ACCU-CHEK COMFORT CURVE STRIP VI SCH ×4 (00:16→17:41)
[2020-03-14] MEDS: InsuLIN REG 1unit/0.01ml Soln (100units/ml) SC SCH ×4 (00:17→17:41)
[2020-03-14 05:00] VITALS: BP 156/75
[2020-03-14] MEDS: metroNIDAZOLE 500MG/100ML 100 ML IV SCH ×3 (06:15→21:21)
[2020-03-14 08:27] LABS: Potassium 3.4 mmol/L (3.5-5.1)
[2020-03-14 08:36] LABS: BUN/Creatinine Ratio 26.1; Bilirubin, Total 0.2 mg/dL (0.2-1.0); Magnesium 2.1 mg/dL (1.6-2.6); Phosphorus 2.3 mg/dL (2.5-4.90); Total Protein 6.1 g/dL (6.4-8.2)
[2020-03-14 09:00] VITALS: BP 143/75
[2020-03-14] MEDS: CHOLECALCIFEROL (VITD3) 2,000 UNIT CAP PO SCH (10:00)
[2020-03-14] MEDS: CITALOPRAM HYDROBR 20 MG TAB PO SCH (10:00)
[2020-03-14] MEDS: FAMOTIDINE (10MG/ML) 2ML VL IV SCH ×2 (10:08→21:20)
[2020-03-14] MEDS: SODIUM CHLOR 0.9% PF (SALINE LOCK) 10ML VIAL/SYR IV SCH ×2 (10:08→21:30)
[2020-03-14] MEDS: levoFLOXacin 500MG 100 ML IV SCH (10:08)
[2020-03-14] MEDS ORDERED: POTASSIUM CHL 20MEQ/100ML 100 ML IV ONE (11:30)
[2020-03-14] MEDS: ONDANSETRON HCL 4 MG/2 ML VIAL IV PRN (12:52)
[2020-03-14 13:00] VITALS: BP 133/79
[2020-03-14 17:00] VITALS: BP 137/70
--- NOTE | 2020-03-14 19:30 | NUR ---
Opening Shift Note Assumed care of patient, awake and alert. No S/S of distress/SOB or pain. Instructed on POC and to call for assist PRN, bed locked in lowest position, call light within reach. will continue to monitor for changes Q1hr and PRN.
[2020-03-14] MEDS ORDERED: TPN PER PHARMACY IV NR ×8 (20:00)
[2020-03-14] MEDS: MORPHINE SULF INJ 2 MG/ML SYRINGE 1ML IV PRN (21:22)
[2020-03-14] MEDS: ATORVASTATIN 20 MG TAB PO SCH (21:24)
[2020-03-14 21:51] VITALS: BP 127/65
[2020-03-15] MEDS: ACCU-CHEK COMFORT CURVE STRIP VI SCH ×5 (00:17→23:59)
[2020-03-15] MEDS: InsuLIN REG 1unit/0.01ml Soln (100units/ml) SC SCH ×5 (00:22→23:58)
[2020-03-15 04:59] VITALS: BP 118/64
[2020-03-15] MEDS: metroNIDAZOLE 500MG/100ML 100 ML IV SCH ×3 (05:29→21:11)
--- NOTE | 2020-03-15 07:00 | NUR ---
Opening Shift Note Received report on the patient. Sleeping lying in bed. Patient shows no signs of distress at this time. Discussed the plan of care with the patient. Bed in lowest position, side rails up x2, and call light is within reach.
--- NOTE | 2020-03-15 07:28 | NUR ---
Patient awake and alert. Bed locked in lowest position with call light within reach. No S/S of distress/SOB. Care endorsed to MELA BRYANT.
[2020-03-15 07:34] LABS: Albumin 1.9 g/dL (3.4-5.0); BUN/Creatinine Ratio 28.6; Bilirubin, Total 0.1 mg/dL (0.2-1.0); Magnesium 2.4 mg/dL (1.6-2.6); Phosphorus 2.9 mg/dL (2.5-4.90); Total Protein 6.1 g/dL (6.4-8.2)
[2020-03-15 08:00] VITALS: BP 126/68
[2020-03-15] MEDS: FAMOTIDINE (10MG/ML) 2ML VL IV SCH ×2 (09:31→21:14)
[2020-03-15] MEDS: SODIUM CHLOR 0.9% PF (SALINE LOCK) 10ML VIAL/SYR IV SCH ×2 (09:31→21:15)
[2020-03-15] MEDS: levoFLOXacin 500MG 100 ML IV SCH (09:31)
[2020-03-15] MEDS: CHOLECALCIFEROL (VITD3) 2,000 UNIT CAP PO SCH (09:32)
[2020-03-15] MEDS: CITALOPRAM HYDROBR 20 MG TAB PO SCH ×2 (09:32→09:40)
--- NOTE | 2020-03-15 09:39 | NUR ---
Dr Bejarano at bedside. No new orders received.
--- NOTE | 2020-03-15 11:24 | NUR ---
Dr Nicolas Chang at beside. No new orders received.
[2020-03-15] MEDS: CHOLECALCIFEROL (VITD3) 1,000UNIT=25mCg TAB PO SCH (11:25)
[2020-03-15 12:00] VITALS: BP 134/74
[2020-03-15] MEDS: ONDANSETRON HCL 4 MG/2 ML VIAL IV PRN (12:06)
[2020-03-15 17:00] VITALS: BP 136/74
--- NOTE | 2020-03-15 19:50 | NUR ---
Opening Shift Note Assumed care of patient, awake and alert turned on left side. Bed locked in the lowest position with bed rails up X2 and call light within reach. No S/S of distress/SOB or pain. Instructed on POC and to call for assist PRN, will continue to monitor for changes Q1hr and PRN.
[2020-03-15] MEDS ORDERED: [UNRECOGNIZED DRUG - OTHER] IV NR ×8 (20:00)
[2020-03-15] MEDS ORDERED: POTASSIUM PHOSPHATE IV NR ×8 (20:00)
[2020-03-15] MEDS ORDERED: POTASSIUM ACETATE IV NR ×8 (20:00)
[2020-03-15] MEDS ORDERED: FAT EMULSION IV NR ×8 (20:00)
[2020-03-15] MEDS: ATORVASTATIN 20 MG TAB PO SCH (21:14)
[2020-03-15] MEDS: MORPHINE SULF INJ 2 MG/ML SYRINGE 1ML IV PRN (21:22)
[2020-03-15 22:00] VITALS: BP 128/62
[2020-03-16 05:00] VITALS: BP 106/60
[2020-03-16] MEDS: InsuLIN REG 1unit/0.01ml Soln (100units/ml) SC SCH ×4 (05:41→23:27)
[2020-03-16] MEDS: metroNIDAZOLE 500MG/100ML 100 ML IV SCH ×3 (05:41→21:09)
[2020-03-16] MEDS: ACCU-CHEK COMFORT CURVE STRIP VI SCH ×4 (05:42→23:30)
--- NOTE | 2020-03-16 05:43 | NUR ---
DRESSING OPTIFOAM APPLIED TO COCCYX WITH ZGAURD. REPOSITIONED PATIENT TO RIGHT SIDE, PATIENT VERBALIZED UNDERSTANDING OF RISK OF SKIN BREAKDOWN.
[2020-03-16 05:50] LABS: Basophils # (auto) 0 10 ^3/uL (0-0.2); Basophils % (auto) 0.7 % (0.0-2.0); Eosinophils # (auto) 0.1 10 ^3/uL (0-0.8); Eosinophils % (auto) 1.8 % (0.0-7.0); Hematocrit 40.7 % (36.0-46.0); Hemoglobin 13.4 g/dL (12.2-16.2); Lymphocytes % (auto) 16.5 % (10.0-50.0); Mean Corpuscular Hemoglobin 27.3 pg (28.0-32.0); Mean Corpuscular Hgb Conc. 33.1 g/dL (32.0-36.0); Mean Corpuscular Volume 82.6 fL (80.0-100.0); Monocytes # (auto) 0.5 10 ^3/uL (0-1.3); Monocytes % (auto) 8.1 % (0.0-12.0); Neutrophils # (auto) 4.4 10 ^3/uL (1.6-8.6); Neutrophils % (auto) 72.9 % (37.0-80.0); Nucleated Red Blood Cells % 0.1 %; Platelet Count (auto) 271 10^3/uL (140-450); Red Blood Cells 4.93 10^6/uL (4.0-5.20); Red Cell Distribution Width 15.5 % (11.8-14.3); White Blood Cell 6.1 10^3/uL (4.4-10.8)
[2020-03-16 06:16] LABS: Albumin 2.1 g/dL (3.4-5.0); BUN/Creatinine Ratio 28.8; Bilirubin, Total 0.2 mg/dL (0.2-1.0); Magnesium 2.4 mg/dL (1.6-2.6); Total Protein 6.5 g/dL (6.4-8.2)
--- NOTE | 2020-03-16 07:20 | NUR ---
ENDORSED CARE TO STAR RN, BED LOCKED IN LOWEST POSITION WITH SIDE RAILS UP X2, CALL LIGHT WITHIN REACH
--- NOTE | 2020-03-16 08:45 | NUR ---
ASSUMED CARE OF PT SLEEPING. NO S/S OF DISTRESS NOTED. IVPB INFUSION COMPLETED. SET TO TKO.
[2020-03-16 09:00] VITALS: BP 118/66
[2020-03-16] MEDS: CITALOPRAM HYDROBR 20 MG TAB PO SCH (10:00)
[2020-03-16] MEDS: CHOLECALCIFEROL (VITD3) 1,000UNIT=25mCg TAB PO SCH (10:00)
[2020-03-16] MEDS: levoFLOXacin 500MG 100 ML IV SCH ×2 (10:00→12:00)
[2020-03-16] MEDS: SODIUM CHLOR 0.9% PF (SALINE LOCK) 10ML VIAL/SYR IV SCH ×2 (10:00→21:19)
[2020-03-16] MEDS: FAMOTIDINE (10MG/ML) 2ML VL IV SCH ×4 (10:00→21:09)
[2020-03-16] MEDS ORDERED: GASTROGRAFIN 120 ML SOL ONE (10:49)
--- NOTE | 2020-03-16 10:50 | NUR ---
DR ERWIN RATLIFF. I ASSESS ABDOMEN, REPORTS TENDER ON PALPATION. SOFT BOWEL SOUNDS PRESENT.
--- NOTE | 2020-03-16 11:05 | NUR ---
IN RADIOLOGY FOR STUDY.
[2020-03-16 13:00] VITALS: BP 118/62
--- NOTE | 2020-03-16 15:23 | NUR ---
Nutrition Followup Notes Wt: 50.9 kg Pt was off the floor d/t a scheduled medical procedure. Per records pt with diverticular perforation. Pt is currently NPO with PN support @ 52 ml/hr providing 1390 kcals, 60 gm proteins and 1150 NPCs. Pt with adequate energy intake from PN support as it meets 93-111% of est caloric needs. Protein intake from PN support is adequate as it meets 100-120% of est protein needs. Est Energy needs BW 50 [id number] kcals (25-30 kcal/kgBW), Est Protein needs: 50-60gms/day (1.0-1.2 gm/kgBW). reassessed Will continue to monitor and reassess prn. LABS: GLU 162 H, ALB 2.1 L GI: Pt has 1 BM on 03/13 per RN doc BS: 18 mod risk. Refer to wound assessment report for full details. PES: 1) Increased nutrient needs aeb pt is NPO r/t pt with no PO intake 2) Inadequate oral intake aeb pt wt. loss of >10lbs in 1 month r/t pt loss of appetite, immobility and continued constipation Comments: Will continue to monitor NPO status, PN tolerance, skin status, pertinent labs and weight trends. Will f/u in 2-3 days. 1) advance PN support to meet > 75% of needs. 2) Gradually advance pt to oral diet when medically feasible and as tolerated. 3) Continue current plan of care
[2020-03-16 16:34] VITALS: BP 122/72
--- NOTE | 2020-03-16 19:15 | NUR ---
PT HAS BEEN SLEEPING MOSTLY SENSE RETURN FROM RADIOLOGY. DENIES DISCOMFORT.
--- NOTE | 2020-03-16 19:50 | NUR ---
Opening Shift Note Assumed care of patient, awake and alert. No S/S of distress/SOB or pain. Bed locked in lowest position, bed rails up X2, call light within reach. Instructed on POC and to call for assist PRN, will continue to monitor for changes Q1hr and PRN.
[2020-03-16] MEDS ORDERED: TPN PER PHARMACY IV NR ×10 (20:00)
[2020-03-16] MEDS: ATORVASTATIN 20 MG TAB PO SCH (21:18)
[2020-03-16 23:11] VITALS: BP 125/77
[2020-03-17] MEDS: metroNIDAZOLE 500MG/100ML 100 ML IV SCH ×3 (05:08→16:50)
[2020-03-17] MEDS: ACCU-CHEK COMFORT CURVE STRIP VI SCH ×3 (05:09→18:25)
[2020-03-17 05:22] VITALS: BP 125/70
[2020-03-17] MEDS: InsuLIN REG 1unit/0.01ml Soln (100units/ml) SC SCH ×3 (05:27→18:24)
[2020-03-17 06:48] LABS: Potassium 4.1 mmol/L (3.5-5.1)
--- NOTE | 2020-03-17 07:00 | NUR ---
CLOSING NOTE ENDORSED CARE TO STAR RN, PATIENT AWAKE AND ALERT WITH BED LOCKED IN LOWEST POSITION. BED RAILS UP X2 CALL LIGHT WITHIN REACH.
[2020-03-17 07:03] LABS: Albumin 2.1 g/dL (3.4-5.0); BUN/Creatinine Ratio 27.8; Bilirubin, Total 0.2 mg/dL (0.2-1.0); Calcium 8.2 mg/dL (8.5-10.1); Magnesium 2.3 mg/dL (1.6-2.6); Phosphorus 2.8 mg/dL (2.5-4.90); Total Protein 6.6 g/dL (6.4-8.2)
--- NOTE | 2020-03-17 08:00 | NUR ---
RESTFUL. AROUSES EASILY. TURNED TO RIGHT SIDE. REMINDED TO KEEP PRESSURE OFF OF SACRUM.
[2020-03-17 08:58] VITALS: BP 146/80
[2020-03-17] MEDS: SODIUM CHLOR 0.9% PF (SALINE LOCK) 10ML VIAL/SYR IV SCH ×2 (10:00→22:25)
[2020-03-17] MEDS: CITALOPRAM HYDROBR 20 MG TAB PO SCH (10:00)
[2020-03-17] MEDS: CHOLECALCIFEROL (VITD3) 1,000UNIT=25mCg TAB PO SCH (10:00)
--- NOTE | 2020-03-17 10:00 | NUR ---
ROTATED TO LEFT SIDE. REMINDED TO KEEP PRESSURE OFF SACRUM. PHONE UP DATE GIVEN PT'S DAUGHTER.
[2020-03-17] MEDS: FAMOTIDINE (10MG/ML) 2ML VL IV SCH (10:45)
[2020-03-17] MEDS: levoFLOXacin 500MG 100 ML IV SCH (10:46)
[2020-03-17] MEDS ORDERED: GASTROGRAFIN 120 ML SOL ONE (11:51)
--- NOTE | 2020-03-17 12:00 | NUR ---
WOUND CARE NOTE: IN TO SEE PATIENT AT THIS TIME PER WOUND CARE CONSULT REQUEST. PATIENT ADMITTED TO [facility] WITH DIAGNOSIS OF ACUTE DIVERTICULITIS. CURRENT VANESSA SCORE IS 16. SHE WAS NOTED UPON ASSESSMENT TO HAVE A REDDENED RIGHT BUTTOCK. WOUND PHOTO TAKEN AT THAT TIME BY BEDSIDE NURSE FOR REFERENCE. PATIENT IS ABLE TO ASSIST WITH HER TURNING/REPOSITIONING. PATIENT NOTED TO HAVE BRIGHT RED BLANCHABLE BUTTOCK. NO INDURATION NOTED. SKIN BLANCHES. IT APPEARS THAT PATIENT HAS DEVELOPED MASD/INTERTRIGO TO THE AREA. SKIN REMAINS INTACT, NO SKIN EROSION NOTED. PATIENT HAS INDWELLING CRUZ CATHETER. NO OTHER SKIN INTEGRITY ISSUES NOTED AT THIS TIME. RECOMMEND: FREQUENT TURN SCHEDULE Q 2 HOURS, PRN CONDITION PERMITS, WITH PRESSURE REDISTRIBUTION USING PILLOWS/WEDGES, BID/PRN APPLICATION WITH ANTIFUNGAL CLEAR MOISTURE BARRIER CREAM TO BILATERAL BUTTOCKS/PERINEUM, SKIN/WOUND CARE PLAN, CONTINUED MONITORING BY WOUND CARE TEAM. Addendum: 03/17/20 at 1511 by Melissa Burns RN Amended: Links added.
[2020-03-17 13:00] VITALS: BP 122/61
--- NOTE | 2020-03-17 13:29 | NUR ---
TO RADIOLOGY VIA WC. IV INFUSION OF TPN CONTINUED.
--- NOTE | 2020-03-17 15:20 | NUR ---
RETURNED FROM RADIOLOGY HAS LOOSE BM. MELINDA CARE AND LINEN CHANGE BY AID.
[2020-03-17 16:48] VITALS: BP 127/70
[2020-03-17] MEDS: MORPHINE SULF INJ 2 MG/ML SYRINGE 1ML IV PRN (17:00)
[2020-03-17] MEDS: ONDANSETRON HCL 4 MG/2 ML VIAL IV PRN (17:01)
--- NOTE | 2020-03-17 17:41 | NUR ---
S/P GASTROGRAPH STUDY C/O PAIN TO LOWER ABDOMEN. ABDOMEN SOFT AND TENDER. MEDICATED WITH MORPHINE IV ORDERED PRN. SHORTLY AFTER EMESIS DARK GREEN EMESIS NOTED. MEDICATED WITH ZOFRAN IV ORDERED PRN.
[2020-03-17] MEDS ORDERED: POTASSIUM ACETATE IV NR ×11 (20:00)
[2020-03-17] MEDS ORDERED: FAT EMULSION IV NR ×11 (20:00)
[2020-03-17] MEDS ORDERED: SODIUM CHLORIDE IV NR ×11 (20:00)
[2020-03-17] MEDS ORDERED: [UNRECOGNIZED DRUG - OTHER] IV NR ×11 (20:00)
[2020-03-17] MEDS: ATORVASTATIN 20 MG TAB PO SCH (21:12)
[2020-03-17 21:51] VITALS: BP 116/65
[2020-03-18] MEDS: ACCU-CHEK COMFORT CURVE STRIP VI SCH ×4 (00:21→18:19)
[2020-03-18] MEDS: InsuLIN REG 1unit/0.01ml Soln (100units/ml) SC SCH ×4 (00:22→18:19)
[2020-03-18 05:00] VITALS: BP 138/76
[2020-03-18] MEDS: metroNIDAZOLE 500MG/100ML 100 ML IV SCH ×3 (06:44→22:17)
[2020-03-18 07:38] LABS: Albumin 2.1 g/dL (3.4-5.0); Calcium 8.6 mg/dL (8.5-10.1); Magnesium 2.5 mg/dL (1.6-2.6); Potassium 4.7 mmol/L (3.5-5.1)
[2020-03-18 07:41] LABS: BUN/Creatinine Ratio 35.9; Bilirubin, Total 0.2 mg/dL (0.2-1.0); Phosphorus 2.6 mg/dL (2.5-4.90); Total Protein 6.6 g/dL (6.4-8.2)
[2020-03-18 08:00] VITALS: BP 124/67
[2020-03-18] MEDS: FAMOTIDINE (10MG/ML) 2ML VL IV SCH ×2 (09:43→22:17)
[2020-03-18] MEDS: levoFLOXacin 500MG 100 ML IV SCH (09:43)
[2020-03-18] MEDS: CITALOPRAM HYDROBR 20 MG TAB PO SCH (09:43)
[2020-03-18] MEDS: SODIUM CHLOR 0.9% PF (SALINE LOCK) 10ML VIAL/SYR IV SCH ×2 (09:43→22:17)
[2020-03-18] MEDS: CHOLECALCIFEROL (VITD3) 1,000UNIT=25mCg TAB PO SCH (09:44)
--- NOTE | 2020-03-18 11:21 | NUR ---
PER DR. WOOTEN. WILL CALL DR. AGOSTO FOR STATUS UPDATE ON PT'S PLAN OF CARE. DR. FARLEY TO DETERMINE DIET. WILL CONTINUE TO MONITOR.
--- NOTE | 2020-03-18 11:52 | NUR ---
Nutrition Followup Notes Wt: 48.8 kg Pt was sleeping with no family by bedside. Per records pt with diverticular perforation. Pt is currently NPO with PN support @ 60 ml/hr providing 1515 kcals, 70 gm proteins and 1235 NPCs. Pt with adequate energy intake from PN support as it meets 101-121% of est caloric needs. Protein intake from PN support is adequate as it meets 116-140% of est protein needs. Est Energy needs BW 50 [id number] kcals (25-30 kcal/kgBW),Est Protein needs: 50-60gms/day (1.0-1.2 gm/kgBW). reassessed Will continue to monitor and reassess prn. LABS: glu 233 h alb 2.1 l, bun 23 h GI: Pt has 3 BM today per RN doc BS: 14 mod risk. Refer to wound assessment report for full details. PES: 1) Increased nutrient needs aeb pt is NPO r/t pt with no PO intake 2) Inadequate oral intake aeb pt wt. loss of >10lbs in 1 month r/t pt loss of appetite, immobility and continued constipation Comments: Will continue to monitor NPO status, PN tolerance, skin status, pertinent labs and weight trends. Will f/u in 2-3 days. 1) advance PN support to meet > 75% of needs. 2) Gradually advance pt to oral diet when medically feasible and as tolerated. 3) Continue current plan of care
[2020-03-18 12:00] VITALS: BP 124/71
--- NOTE | 2020-03-18 16:20 | NUR ---
Hygiene care provided. Bilateral buttocks redness, area cleansed and barrier cream applied. Call light within reach.
[2020-03-18 17:00] VITALS: BP 126/70
[2020-03-18] MEDS ORDERED: TPN PER PHARMACY IV NR ×8 (20:00)
[2020-03-18 22:04] VITALS: BP 130/68
[2020-03-18] MEDS: ATORVASTATIN 20 MG TAB PO SCH (22:17)
[2020-03-19 05:00] VITALS: BP 122/67
[2020-03-19] MEDS: metroNIDAZOLE 500MG/100ML 100 ML IV SCH ×3 (05:53→21:42)
[2020-03-19] MEDS: ACCU-CHEK COMFORT CURVE STRIP VI SCH ×3 (06:00→23:46)
[2020-03-19] MEDS: InsuLIN REG 1unit/0.01ml Soln (100units/ml) SC SCH ×3 (06:15→23:46)
[2020-03-19 07:03] LABS: Albumin 1.9 g/dL (3.4-5.0); Calcium 8.2 mg/dL (8.5-10.1); Magnesium 2.1 mg/dL (1.6-2.6); Potassium 3.9 mmol/L (3.5-5.1)
[2020-03-19 07:07] LABS: BUN/Creatinine Ratio 46.8; Bilirubin, Total 0.3 mg/dL (0.2-1.0); Phosphorus 3.2 mg/dL (2.5-4.90); Total Protein 6.2 g/dL (6.4-8.2)
[2020-03-19 09:00] VITALS: BP 117/71
--- NOTE | 2020-03-19 09:20 | NUR ---
STOOL-LIKE SEDIMENTS IN CRUZ CATHETER TUBING. HYGIENE CARE PROVIDED. DR. AGOSTO MADE AWARE. DR. FARLEY AT BEDSIDE, ORDERS GIVEN FOR CYSTOGRAM, ORDERS INPUT. PROVIDED COMFORT TO PT. BED LOCKED AND IN LOWEST POSITION, CALL LIGHT WITHIN REACH. WILL CONTINUE TO MONITOR.
[2020-03-19] MEDS ORDERED: IOTHALAMATE MEGLUMINE INJ 250ML BOT UR ONE (10:19)
[2020-03-19] MEDS: CITALOPRAM HYDROBR 20 MG TAB PO SCH (11:24)
[2020-03-19] MEDS: FAMOTIDINE (10MG/ML) 2ML VL IV SCH (11:25)
[2020-03-19] MEDS: levoFLOXacin 500MG 100 ML IV SCH (11:25)
[2020-03-19] MEDS: SODIUM CHLOR 0.9% PF (SALINE LOCK) 10ML VIAL/SYR IV SCH ×2 (11:25→21:42)
[2020-03-19] MEDS: CHOLECALCIFEROL (VITD3) 1,000UNIT=25mCg TAB PO SCH (11:25)
[2020-03-19 13:00] VITALS: BP 151/90
--- NOTE | 2020-03-19 14:00 | NUR ---
CBI CRUZ CATHETER INSERTION. SYSTEM PATENT. PT TOLERATED PROCEDURE WELL. WILL CONTINUE TO MONITOR.
[2020-03-19] MEDS: ONDANSETRON HCL 4 MG/2 ML VIAL IV PRN (14:28)
[2020-03-19 17:00] VITALS: BP 127/70
--- NOTE | 2020-03-19 17:53 | NUR ---
RN HOLD FOR PT TODAY. WILL TRY AGAIN TOMORROW. Addendum: 03/19/20 at 1753 by RUBIA DAVILA PTT Amended: Links added.
--- NOTE | 2020-03-19 18:04 | NUR ---
CBI IN PLACE, PATENT. PT DENIES ANY DISCOMFORT AT MOMENT. EFFORTLESS BREATHING ON ROOM AIR.
--- NOTE | 2020-03-19 19:15 | NUR ---
REPORT GIVEN TO ONCOMING RN ALL QUESTIONS AND CONCERNS ADDRESSED.
[2020-03-19] MEDS ORDERED: TPN PER PHARMACY IV NR ×9 (20:00)
[2020-03-19] MEDS: ATORVASTATIN 20 MG TAB PO SCH (21:42)
[2020-03-19] MEDS ORDERED: DEXTROSE (50%) 50ML SYRG IV SCH (21:45)
[2020-03-19 22:00] VITALS: BP 121/60
--- NOTE | 2020-03-20 04:15 | NUR ---
CARE TRANSFERED CARE ENDORSED TO VINCE BRYANT
[2020-03-20 05:00] VITALS: BP 150/87
[2020-03-20] MEDS: metroNIDAZOLE 500MG/100ML 100 ML IV SCH ×3 (06:40→23:10)
[2020-03-20] MEDS: InsuLIN REG 1unit/0.01ml Soln (100units/ml) SC SCH ×4 (06:40→23:44)
[2020-03-20] MEDS: ACCU-CHEK COMFORT CURVE STRIP VI SCH ×4 (06:40→23:44)
--- NOTE | 2020-03-20 07:30 | NUR ---
Opening Shift Note Assumed care of patient, awake and alert. No S/S of distress/SOB or pain. Instructed on POC and to call for assist PRN, will continue to monitor for changes Q1hr and PRN. Bed is locked and in lowest position. Call light within reach.
[2020-03-20 07:33] LABS: Albumin 1.9 g/dL (3.4-5.0); Calcium 8.5 mg/dL (8.5-10.1); Magnesium 2.2 mg/dL (1.6-2.6); Potassium 3.8 mmol/L (3.5-5.1)
[2020-03-20 07:39] LABS: BUN/Creatinine Ratio 41.7; Bilirubin, Total 0.2 mg/dL (0.2-1.0); Total Protein 6.3 g/dL (6.4-8.2)
[2020-03-20 08:00] VITALS: BP 133/78
[2020-03-20 09:00] VITALS: BP 133/78
[2020-03-20] MEDS: FAMOTIDINE (10MG/ML) 2ML VL IV SCH (09:35)
[2020-03-20] MEDS: CITALOPRAM HYDROBR 20 MG TAB PO SCH (09:35)
[2020-03-20] MEDS: levoFLOXacin 500MG 100 ML IV SCH (09:35)
[2020-03-20] MEDS: SODIUM CHLOR 0.9% PF (SALINE LOCK) 10ML VIAL/SYR IV SCH ×2 (09:36→23:10)
[2020-03-20] MEDS ORDERED: ENOXAPARIN SOD 40 MG/0.4 ML SYRINGE SC SCH (10:00)
--- NOTE | 2020-03-20 11:30 | NUR ---
URINE IS DRAINING TO CRUZ BAG. CRUZ BAG EMPTIED AND NOTED STOOL IN URINE. PUT ANOTHER 5 ML OF NORMAL SALINE IN CRUZ BALLOON DUE TO URINE NOTED IN CHUCKS. WILL CONTINUE TO MONITOR.
--- NOTE | 2020-03-20 11:43 | NUR ---
Nutrition Followup Notes Wt: 52.0 kg Pt was awake with no family by bedside. Per records pt with diverticular perforation. Pt is currently NPO with PN support @ 60 ml/hr providing 1515 kcals, 70 gm proteins and 1235 NPCs. Pt with adequate energy intake from PN support as it meets 101-121% of est caloric needs. Protein intake from PN support is adequate as it meets 116-140% of est protein needs. Pt noted she is still with discomfort and pain. Est Energy needs BW 50 [id number] kcals (25-30 kcal/kgBW), Est Protein needs: 50-60gms/day (1.0-1.2 gm/kgBW). reassessed Will continue to monitor and reassess prn. LABS: GLU 154 H, ALB 1.9L, BUN 20 H GI: Pt had 5 BM on 03/19 per RN doc BS: 10 high risk. Refer to wound assessment report for full details. PES: 1) Increased nutrient needs aeb pt is NPO r/t pt with no PO intake 2) Inadequate oral intake aeb pt wt. loss of >10lbs in 1 month r/t pt loss of appetite, immobility and continued constipation Comments: Will continue to monitor NPO status, PN tolerance, skin status, pertinent labs and weight trends. Will f/u in 2-3 days. 1) Advance PN support to meet > 75% of needs. (Resolved) 2) Gradually advance pt to oral diet when medically feasible and as tolerated. 3) Continue current plan of care
[2020-03-20 12:55] VITALS: BP 132/72
[2020-03-20 16:55] VITALS: BP 120/65
--- NOTE | 2020-03-20 17:27 | NUR ---
PHONE CALL MADE TO PHARMACY REGARDING PATIENT TPN 60ML/HR BAG HAS 100 ML LEFT. PER PHARMACIST DECREASE RATE FROM 60 ML/HR TO 40 ML/HR UNTIL NEXT BAG OF TPN IS DUE. WILL CONTINUE TO MONITOR.
--- NOTE | 2020-03-20 19:30 | NUR ---
Opening Shift Note Assumed care of patient, awake and alert x4. No S/S of distress/SOB or pain. Barnett bag is hung below bladder and draining yellow urine with brown sediment, with continuous irrigation running. TPN is infusing to the MARLIN PICC line, new bag to be changed at 20:00. Instructed on POC and to call for assist PRN. All questions and concerns answered, will continue to monitor for changes Q1hr and PRN.
[2020-03-20] MEDS ORDERED: TPN PER PHARMACY IV NR ×10 (20:00)
[2020-03-20 22:00] VITALS: BP 146/72
[2020-03-20] MEDS: ATORVASTATIN 20 MG TAB PO SCH (23:10)
[2020-03-20] MEDS: ONDANSETRON HCL 4 MG/2 ML VIAL IV PRN (23:44)
[2020-03-21 05:00] VITALS: BP 134/71
[2020-03-21] MEDS: metroNIDAZOLE 500MG/100ML 100 ML IV SCH ×3 (05:32→21:48)
[2020-03-21] MEDS: ACCU-CHEK COMFORT CURVE STRIP VI SCH ×3 (05:32→17:25)
[2020-03-21] MEDS: InsuLIN REG 1unit/0.01ml Soln (100units/ml) SC SCH ×3 (05:32→17:25)
--- NOTE | 2020-03-21 06:00 | NUR ---
CBI I&O for noc shift intake: 3600cc output 3500cc.
[2020-03-21 06:23] LABS: Albumin 1.9 g/dL (3.4-5.0); Calcium 8.4 mg/dL (8.5-10.1); Magnesium 2.2 mg/dL (1.6-2.6)
[2020-03-21 06:28] LABS: BUN/Creatinine Ratio 39.5; Bilirubin, Total 0.2 mg/dL (0.2-1.0); Phosphorus 3.2 mg/dL (2.5-4.90); Total Protein 6.4 g/dL (6.4-8.2)
[2020-03-21 06:37] LABS: INR 1.1 (0.9-1.15)
--- NOTE | 2020-03-21 07:30 | NUR ---
Opening Shift Note Assumed care of patient, resting comfortably in bed. No S/S of distress/SOB or pain. Instructed on POC and to call for assist PRN, will continue to monitor for changes Q1hr and PRN. Bed is locked and in lowest position. Call light within reach.
[2020-03-21] MEDS: ONDANSETRON HCL 4 MG/2 ML VIAL IV PRN (08:34)
--- NOTE | 2020-03-21 08:40 | NUR ---
PHONE CALL RECEIVED FROM PHARMACY REGARDING PATIENT TPN ORDER. PER DR. KWON AT BEDSIDE PATIENT TO CONTINUE ON TPN AND NPO ORDERS PATIENT IS AWAITING PROCEDURE WITH DR. FARLEY. WILL CONTINUE WITH POC.
--- NOTE | 2020-03-21 08:45 | NUR ---
IV removal IV DC'd on left forearm with clean sterile technique, catheter fully intact. Pressure dressing applied to site. Patient tolerated well.
[2020-03-21 08:55] VITALS: BP 143/72
[2020-03-21] MEDS: levoFLOXacin 500MG 100 ML IV SCH (09:40)
[2020-03-21] MEDS: CITALOPRAM HYDROBR 20 MG TAB PO SCH (09:40)
[2020-03-21] MEDS: FAMOTIDINE (10MG/ML) 2ML VL IV SCH (09:40)
[2020-03-21] MEDS: SODIUM CHLOR 0.9% PF (SALINE LOCK) 10ML VIAL/SYR IV SCH ×2 (09:42→21:49)
[2020-03-21] MEDS: PROMETHAZINE HCL 25 MG/ML 1ML IV PRN (11:48)
[2020-03-21 13:00] VITALS: BP 150/86
[2020-03-21 16:55] VITALS: BP 146/81
--- NOTE | 2020-03-21 18:02 | NUR ---
AIR MATTRESS: Air mattress ordered at [employer]. JUSTICE 03/21/20 @ 2359 Reference #[id number]. Please call [employer] [facility] at if needed to follow up. Addendum: 03/21/20 at 1804 by Beth Awad RN Amended: Links added.
--- NOTE | 2020-03-21 19:12 | NUR ---
CBI DRAINING PROPERLY. A TOTAL OF TWO BAGS FOR TODAY CHANGED.
--- NOTE | 2020-03-21 19:35 | NUR ---
Opening Shift Note Assumed care of patient, awake and alert. No S/S of distress/SOB or pain. CBI draining properly to light yellow urine. Discussed on POC and to call for assist PRN, patient verbalized understanding. Bed in lowest and locked position, bed alarm on, call light within reach, will continue to monitor for changes Q1hr and PRN.
[2020-03-21] MEDS ORDERED: TPN PER PHARMACY IV NR ×9 (20:00)
--- NOTE | 2020-03-21 20:45 | NUR ---
Spoke to Juan regarding the air mattress. Per Juan, mattress will be delivered tomorrow.
[2020-03-21] MEDS: ATORVASTATIN 20 MG TAB PO SCH (21:48)
[2020-03-21 22:00] VITALS: BP 130/77
[2020-03-22] MEDS: ACCU-CHEK COMFORT CURVE STRIP VI SCH ×4 (00:13→17:47)
[2020-03-22 05:00] VITALS: BP 145/77
[2020-03-22] MEDS: InsuLIN REG 1unit/0.01ml Soln (100units/ml) SC SCH ×5 (06:00→23:54)
[2020-03-22] MEDS: metroNIDAZOLE 500MG/100ML 100 ML IV SCH ×3 (06:04→22:33)
[2020-03-22 06:42] LABS: Albumin 1.9 g/dL (3.4-5.0); BUN/Creatinine Ratio 40.8; Bilirubin, Total 0.2 mg/dL (0.2-1.0); Calcium 8.3 mg/dL (8.5-10.1); Magnesium 2.3 mg/dL (1.6-2.6); Phosphorus 3.8 mg/dL (2.5-4.90); Total Protein 6.3 g/dL (6.4-8.2)
[2020-03-22] MEDS ORDERED: GOLYTELY 4L KIT PO ONE (07:30)
[2020-03-22 09:00] VITALS: BP 135/71
--- NOTE | 2020-03-22 09:14 | NUR ---
Opening Shift Note Assumed care of patient, awake and alert. No S/S of distress/SOB chronic chest pain managed effectively with morphine. Bed in lowest position with wheels locked bed alarm for safety. Instructed on POC and to call for assist PRN, will continue to monitor for changes Q1hr and PRN. Addendum: 03/22/20 at 0947 by ESTELLE HOWE RN RN WRONG PATIENT
[2020-03-22] MEDS: SODIUM CHLOR 0.9% PF (SALINE LOCK) 10ML VIAL/SYR IV SCH ×2 (10:10→22:33)
[2020-03-22] MEDS: PROMETHAZINE HCL 25 MG/ML 1ML IV PRN ×2 (10:10→20:18)
[2020-03-22] MEDS: FAMOTIDINE (10MG/ML) 2ML VL IV SCH (10:10)
[2020-03-22] MEDS: CITALOPRAM HYDROBR 20 MG TAB PO SCH (10:11)
[2020-03-22] MEDS: levoFLOXacin 500MG 100 ML IV SCH (10:12)
[2020-03-22 13:00] VITALS: BP 151/84
--- NOTE | 2020-03-22 13:49 | NUR ---
Opening Shift Note Assumed care of patient, awake and alert A/O x 4. Barnett Catheter intact and flowing with yellow clear urnine. No S/S of distress/SOB or pain. Bed locked and in lowest position call light in reach. Instructed on POC and to call for assist PRN, will continue to monitor for changes Q1hr and PRN. Addendum: 03/22/20 at 1356 by ESTELLE HOWE RN RN This assessment was done at 0745.
--- NOTE | 2020-03-22 14:55 | NUR ---
Nutrition Followup Notes Wt: 51.6 kg Pt was sleeping when rounded this am. Per records pt with diverticular perforation. Pt is currently NPO with PN support @ 60 ml/hr providing 1515 kcals, 70 gm proteins and 1235 NPCs. Pt with adequate energy intake from PN support as it meets 101-121% of est caloric needs. Protein intake from PN support is adequate as it meets 116-140% of est protein needs. Pt noted she is still with discomfort and pain. Est Energy needs BW 50 [id number] kcals (25-30 kcal/kgBW), Est Protein needs: 50-60gms/day (1.0-1.2 gm/kgBW). reassessed Will continue to monitor and reassess prn. LABS: BUN 20 H GLU 133 H CA 8.3 L ALB 1.9 L GI: Pt had 5 BM on 03/19 per RN doc BS: 13 mod risk. Refer to wound assessment report for full details. PES: 1) Increased nutrient needs aeb pt is NPO r/t pt with no PO intake 2) Inadequate oral intake aeb pt wt. loss of >10lbs in 1 month r/t pt loss of appetite, immobility and continued constipation Comments: Will continue to monitor NPO status, PN tolerance, skin status, pertinent labs and weight trends. Will f/u in 2-3 days. 1) Advance PN support to meet > 75% of needs. (Resolved) 2) Gradually advance pt to oral diet when medically feasible and as tolerated. 3) Continue current plan of care
--- NOTE | 2020-03-22 15:30 | NUR ---
AIR MATTRESS- PATIENT TRANSFERRED TO AIR MATTRESS, LINENS CHANGED AND PARTIAL BED BATH COMPLETED.
[2020-03-22 17:00] VITALS: BP 132/77
--- NOTE | 2020-03-22 18:46 | NUR ---
CBI DRAINING CORRECTLY ONE BAG 3000 COMPLETED TODAY; PATIENT TOLERATED WELL. URINE DARK SHANNON WITH BROWN STOOL SEDIMENT.
--- NOTE | 2020-03-22 18:47 | NUR ---
SHELBY PATIENT DRANK 1/4 OF BOWEL PREP; ENDORSED TO NIGHT RN.
--- NOTE | 2020-03-22 19:25 | NUR ---
endorsed care to night rn; patient will continue with bowel prep tonight.
--- NOTE | 2020-03-22 19:45 | NUR ---
Opening Shift Note Assumed care of patient. Patient laying in bed. No S/S of distress/SOB or pain. Safety measures maintained by keeping the bed locked in lowest position, 2 side rails up, personal items and call light within reach. Patient is on continuous bladder irrigation. Patient working on taking the Golytely. Instructed on POC and to call for assist PRN, will continue to monitor for changes Q1hr and PRN.
[2020-03-22] MEDS ORDERED: TPN PER PHARMACY IV NR ×10 (20:00)
[2020-03-22 22:00] VITALS: BP 167/85
[2020-03-22] MEDS: ATORVASTATIN 20 MG TAB PO SCH (22:33)
[2020-03-23] VITALS (40 sets, daily range): BP systolic 71–184; BP diastolic 43–87
[2020-03-23] MEDS: ACCU-CHEK COMFORT CURVE STRIP VI SCH ×4 (00:09→18:13)
[2020-03-23] MEDS: metroNIDAZOLE 500MG/100ML 100 ML IV SCH ×3 (05:36→21:50)
[2020-03-23] MEDS: PROMETHAZINE HCL 25 MG/ML 1ML IV PRN ×2 (05:37→09:49)
[2020-03-23] MEDS: InsuLIN REG 1unit/0.01ml Soln (100units/ml) SC SCH ×3 (05:43→17:53)
[2020-03-23 06:04] LABS: Basophils # (auto) 0 10 ^3/uL (0-0.2); Basophils % (auto) 0.4 % (0.0-2.0); Eosinophils # (auto) 0.1 10 ^3/uL (0-0.8); Eosinophils % (auto) 1.9 % (0.0-7.0); Hematocrit 38.6 % (36.0-46.0); Hemoglobin 12.8 g/dL (12.2-16.2); Lymphocytes # (auto) 1.2 10 ^3/uL (0.4-5.4); Lymphocytes % (auto) 19.8 % (10.0-50.0); Mean Corpuscular Hemoglobin 27.2 pg (28.0-32.0); Mean Corpuscular Hgb Conc. 33.2 g/dL (32.0-36.0); Mean Corpuscular Volume 81.8 fL (80.0-100.0); Monocytes # (auto) 0.5 10 ^3/uL (0-1.3); Monocytes % (auto) 8.9 % (0.0-12.0); Neutrophils # (auto) 4.1 10 ^3/uL (1.6-8.6); Platelet Count (auto) 383 10^3/uL (140-450); Red Blood Cells 4.72 10^6/uL (4.0-5.20); Red Cell Distribution Width 16.2 % (11.8-14.3); White Blood Cell 5.9 10^3/uL (4.4-10.8)
[2020-03-23 06:07] LABS: INR 1.12 (0.9-1.15); Partial Thromboplastin Time 29.7 sec (23.0-31.2)
[2020-03-23 06:15] LABS: Potassium 3.9 mmol/L (3.5-5.1)
[2020-03-23 06:24] LABS: BUN/Creatinine Ratio 41.3; Bilirubin, Total 0.2 mg/dL (0.2-1.0); Calcium 8.8 mg/dL (8.5-10.1); Magnesium 2.3 mg/dL (1.6-2.6); Phosphorus 3.4 mg/dL (2.5-4.90); Total Protein 6.7 g/dL (6.4-8.2)
--- NOTE | 2020-03-23 07:45 | NUR ---
Opening Shift Note Assumed care of patient, awake and alert A/O x 4. Barnett Catheter intact and flowing with bonny cloudy urine with feces particles. No S/S of distress/SOB or pain. Bed locked and in lowest position bed alarm for safety call light in reach. Instructed on POC and to call for assist PRN, will continue to monitor for changes Q1hr and PRN.
[2020-03-23] MEDS: SODIUM CHLOR 0.9% PF (SALINE LOCK) 10ML VIAL/SYR IV SCH ×2 (09:52→21:52)
[2020-03-23] MEDS: levoFLOXacin 500MG 100 ML IV SCH (09:52)
[2020-03-23] MEDS: FAMOTIDINE (10MG/ML) 2ML VL IV SCH (09:52)
[2020-03-23] MEDS: CITALOPRAM HYDROBR 20 MG TAB PO SCH (09:57)
[2020-03-23] MEDS ORDERED: fentaNYL CITRATE 5 ML ONE (11:55)
[2020-03-23] MEDS ORDERED: ROCURONIUM 10MG/ML 10ML VIAL IV ONE (11:55)
[2020-03-23] MEDS ORDERED: POVIDONE IODINE 10 % TOPICAL OINT 30GM TOP ONE (11:55)
[2020-03-23] MEDS ORDERED: MIDAZOLAM HCL 1MG/1ML-2 ML VIAL ONE (11:55)
[2020-03-23] MEDS ORDERED: HYDROCORTISONE SOD SUCC 100 MG/2ML INJ VIAL ONE (11:57)
[2020-03-23] MEDS ORDERED: ONDANSETRON HCL 4 MG/2 ML VIAL ONE (11:57)
[2020-03-23] MEDS ORDERED: ETOMIDATE (2MG/ML) 20ML VIAL IV ONE (11:57)
[2020-03-23] MEDS ORDERED: DexAMETHasone SOD PHOS 10MG/1ML VIAL INJ ONE (11:57)
[2020-03-23] MEDS ORDERED: GLYCOPYRROLATE 0.2 MG/ML 1ML VIAL ONE (11:57)
[2020-03-23] MEDS ORDERED: PROPOFOL 10 MG/ML 20 ML IV ONE (11:57)
[2020-03-23] MEDS ORDERED: ePHEDrine SULFATE 50 MG/ML AMP ONE (11:57)
[2020-03-23] MEDS ORDERED: PHENYLEPHRINE HCL 10 MG/ML VL ONE (11:57)
[2020-03-23] MEDS ORDERED: LIDOCAINE 2% (LOCAL ANESTH.) PF 5ml SDV ONE (11:57)
--- NOTE | 2020-03-23 12:00 | NUR ---
SURGERY PATIENT TRANSPORTED VIA HOSPITAL BED WITH CRUZ SET TO CONTINUOUS IRRIGATION. PATIENT DENIED PAIN, NO SOB. ENDORSED CARE TO BOBO CHERRY RN.
[2020-03-23] MEDS ORDERED: metroNIDAZOLE 500MG/100ML 100 ML IV ONE (12:10)
[2020-03-23] MEDS ORDERED: BENZOCAINE (DENTAL) 20 % SPRAY 60ML MT ONE (12:15)
[2020-03-23] MEDS ORDERED: METHYLENE BLUE 0.5% 5MG/ML 10ml AMP IV ONE (13:46)
--- NOTE | 2020-03-23 14:11 | NUR ---
ICU- HOUSE SUP NOTIFIED THIS RN PATIENT UPGRADED TO ICU. ALL BELONGINGS SENT WITH RESOURCE RN AZUL INCLUDING 2 SILVER BRACELETS AND HER WALLET AND CANE.
--- NOTE | 2020-03-23 14:20 | NUR ---
REPORT CALLED MANNY ANDUJAR ICU.
[2020-03-23] MEDS ORDERED: MIDAZOLAM DRIP 50 mg/50mL 50 ML IV SCH (15:22)
[2020-03-23] MEDS ORDERED: HYDROmorphone HCL 2 MG/ML VL IV PRN (15:30)
[2020-03-23] MEDS ORDERED: ONDANSETRON HCL 4 MG/2 ML VIAL IV PRN (15:30)
[2020-03-23] MEDS ORDERED: fentaNYL CITRATE 100 MCG/2 ML VL ONE (15:36)
--- NOTE | 2020-03-23 15:45 | NUR ---
S/P OR assessment Patient to room 101 following O.R. procedure. Vital signs taken. Surgical incision to mid abd. with medipore tape CDI. Erich drain noted to have sanguineous output. 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 Abd. soft. Ng to right nare at 56cm to LCS. Barnett in place and draining and stained with blue medication per Or mixed with yellow clear urine and small brown particles. Post of Cxr ordered. See ventilator assessment/assessments/ R.t notes. Patient tolerating ventilator well. Patient hypertensive and tachycardic- Sedation started to right upper arm picc line for comfort. [place] to right wrist secured,flushed and zeroed. Patient on specialty mattress- sacrum assessed with MASD to bilateral buttocks. Zguard and Optifoam placed. Heels off loaded. Patient turned to left side. Tolerated positioning well. Will continue to monitor - Family called to obtained update. Questions and concerns addressed. paged to notify family is requesting update on patients status. Surgeon verbalized understanding Addendum: 03/23/20 at 1710 by Saritha Siegel RN NO TPN RECEIVED ON ARRIVAL.
[2020-03-23] MEDS: MIDAZOLAM DRIP 50 mg/50mL 50 ML IV SCH (16:00)
[2020-03-23] MEDS ORDERED: TPN PER PHARMACY 0 ML IV SCH (16:15)
--- NOTE | 2020-03-23 16:17 | NUR ---
Respiratory note: RECEIVED PATIENT FROM DR. NORIEGA AT APPROX 1545, INTUBATED WITH A 7.O ETT SECURED AT THE 20CM MARKING AT THE LIP AND BEING BAGGED ON 100% FIO2. ETT WAS SECURED VIA CHANELLE AND PATIENT WAS PLACED ON V18 CARESCAPE VENT AND IS BEING VENTILATED WITH THE CHARTED SETTINGS. SPO2 100%, LUNG SOUNDS DIM T/O, SCANT AMOUNT OF THIN CLEAR SECRETIONS WHEN SUCTIONED. SKIN IS WARM/DRY TO THE TOUCH AND IS INTACT NEAR CHANELLE SITE. THERE IS A NGT PLACED IN THE RIGHT NARE AND IT IS SECURED TO THE NOSE. A PICC LINE IS PLACED IN THE RIGHT UPPER ARM, A RIGHT RADIAL ARTERIAL LINE IS IN PLACE AND PATENT, AND THERE IS A JULIO CESAR DRAIN IN THE ABDOMEN. CXR TAKEN AND IT SHOWED ETT IN UNSATISFACTORY POSITION SITTING APPROX 5.8CM ABOVE THE CRISPIN; ETT SUBSEQUENTLY ADVANCED 2CM AND RESECURED AT THE 22CM MARKING AT THE LIP. MANNY MELGAR MADE AWARE OF CHANGE. PATIENT IS UNRESPONSIVE TO BOTH VERBAL/TACTILE STIMULI AND WAS SEDATED ON A FENTANYL PUSH PRIOR TO DELIVERY. SHE IS RESTING COMFORTABLY AND TOLERATING VENT WELL. VENT PLUGGED INTO RED OUTLET AND ALL ALARMS ARE SET AND AUDIBLE. WILL CONTINUE TO ASSESS PATIENT WELL VENTILATOR FUNCTION.
[2020-03-23] MEDS: fentaNYL Drip 2500mCg/250mlNS 250 ML IV SCH (16:36)
--- NOTE | 2020-03-23 16:45 | NUR ---
Respiratory note: FIO2 DECREASED TO 40% AT THIS TIME. MANNY MELGAR MADE AWARE OF CHANGE.
--- NOTE | 2020-03-23 18:00 | NUR ---
OUTPUT SURGICAL INCISION NOTED TO HAVE A SMALL AMOUNT OF DRAINAGE ONTO GAUZE AND MEDIPORE TAPE. AREA OF CONCERN CIRCLED FOR REF. TOTAL OF 50CC OF SANGIOUS OUTPUT NOTED FROM JULIO CESAR 250CC, LIQUID BROWN STOOL FROM COLOSTOMY. URINE CONTINUES TO DRAIN SMALL PARTICLES, MANUAL NS FLUSH USED TO PREVENT CATHETER FROM CLOGGING. 50CC OF YELLOW DRAINAGE FROM NG. DRAINAGE CONTINUES AT LCS.
[2020-03-23] MEDS ORDERED: TPN PER PHARMACY IV NR ×10 (20:00)
[2020-03-23] MEDS: ATORVASTATIN 20 MG TAB PO SCH (21:52)
--- NOTE | 2020-03-23 22:10 | NUR ---
PAGED HOSPITALIST REGARDING HYPOTENSION. WAITING FOR CALL BACK.
--- NOTE | 2020-03-23 22:40 | NUR ---
EYEGLASS ASSEMBLER returned call JAYANT EYEGLASS ASSEMBLER returned call, updated on patient status and reason for call, orders received. Continue care.
[2020-03-23] MEDS ORDERED: ALBUMIN 5% 250 ML IV ONE ×2 (22:45→22:47)
[2020-03-24] VITALS (103 sets, daily range): BP systolic 71–158; BP diastolic 37–84
[2020-03-24] MEDS: ACCU-CHEK COMFORT CURVE STRIP VI SCH ×4 (00:35→17:22)
[2020-03-24] MEDS: InsuLIN REG 1unit/0.01ml Soln (100units/ml) SC SCH ×4 (00:53→17:21)
[2020-03-24] MEDS ORDERED: NOREPINEPHRINE 8 MG/250ML KIT 250 ML IV ONE (03:21)
[2020-03-24] MEDS: NOREPINEPHRINE 8 MG/250ML KIT 250 ML IV SCH (03:25)
[2020-03-24 04:07] LABS: Basophils # (auto) 0 10 ^3/uL (0-0.2); Basophils % (auto) 0.1 % (0.0-2.0); Eosinophils # (auto) 0 10 ^3/uL (0-0.8); Hematocrit 30.9 % (36.0-46.0); Hemoglobin 9.9 g/dL (12.2-16.2); Lymphocytes # (auto) 0.4 10 ^3/uL (0.4-5.4); Lymphocytes % (auto) 3.6 % (10.0-50.0); Mean Corpuscular Hemoglobin 26.6 pg (28.0-32.0); Mean Corpuscular Hgb Conc. 31.9 g/dL (32.0-36.0); Mean Corpuscular Volume 83.2 fL (80.0-100.0); Monocytes # (auto) 0.5 10 ^3/uL (0-1.3); Monocytes % (auto) 4.6 % (0.0-12.0); Neutrophils # (auto) 10.5 10 ^3/uL (1.6-8.6); Neutrophils % (auto) 91.7 % (37.0-80.0); Platelet Count (auto) 305 10^3/uL (140-450); Red Blood Cells 3.71 10^6/uL (4.0-5.20); Red Cell Distribution Width 16.2 % (11.8-14.3); White Blood Cell 11.4 10^3/uL (4.4-10.8)
[2020-03-24 04:23] LABS: Calcium 7.8 mg/dL (8.5-10.1); Magnesium 2.1 mg/dL (1.6-2.6); Potassium 4.2 mmol/L (3.5-5.1)
[2020-03-24 04:27] LABS: Bilirubin, Total 0.2 mg/dL (0.2-1.0); Phosphorus 2.8 mg/dL (2.5-4.90); Total Protein 5.5 g/dL (6.4-8.2)
[2020-03-24] MEDS: metroNIDAZOLE 500MG/100ML 100 ML IV SCH ×3 (05:38→21:01)
--- NOTE | 2020-03-24 08:56 | NUR ---
Pulm Consult called per [facility] [employer] Director/Tech
[2020-03-24] MEDS: SODIUM CHLOR 0.9% PF (SALINE LOCK) 10ML VIAL/SYR IV SCH ×2 (09:53→22:00)
[2020-03-24] MEDS: CITALOPRAM HYDROBR 20 MG TAB PO SCH (09:53)
[2020-03-24] MEDS: levoFLOXacin 500MG 100 ML IV SCH (09:53)
[2020-03-24] MEDS: FAMOTIDINE (10MG/ML) 2ML VL IV SCH (09:53)
--- NOTE | 2020-03-24 10:16 | NUR ---
PULM CONSULT MD AT , WILL TITRATE DOWN SEDATION AND HOPEFULLY TITRATE DOWN LEVOPHED, GOAL IS TO EXTUBATE TOLERATED/INDICATED. FIO2 DECREASED TO 30% THIA AM POST ABG, PT REMAINS STABLE WITH ETT TO VENT A/C SETTINGS NOTED.
[2020-03-24] MEDS ORDERED: ALBUMIN 25% 100 ML IV ONE (11:45)
--- NOTE | 2020-03-24 15:00 | NUR ---
WOUND CARE NOTE: Attempted to see patient for skin integrity monitoring. Patient is on Cpap, awaiting for extubation. Wound care will try to see patient at later time.
--- NOTE | 2020-03-24 15:12 | NUR ---
RT AT BS, PT WAITING EXTUBATION AT THIS TIME.
--- NOTE | 2020-03-24 15:15 | NUR ---
RT NOTE: PT. EXTUBATED WITHOUT INCIDENT PER DR. AGOSTO TELEPHONE ORDER. PT. PLACED ON COOL AEROSOL MASK AT 12L/35%. PT. APPEARS TO BE TOLERATING WELL. RN OSITO AWARE. WILL CONTINUE TO MONITOR.
[2020-03-24] MEDS: fentaNYL Drip 2500mCg/250mlNS 250 ML IV SCH (15:22)
[2020-03-24] MEDS: MIDAZOLAM DRIP 50 mg/50mL 50 ML IV SCH (15:37)
--- NOTE | 2020-03-24 15:39 | NUR ---
Nutrition Followup Notes Wt: 61.7 kg Pt was intubated, sedated when rounded this am. Per records pt with diverticular perforation. Pt is currently NPO with PN support @ 60 ml/hr providing 1515 kcals, 70 gm proteins and 1235 NPCs. Pt with adequate energy intake from PN support as it meets 101-121% of est caloric needs. Protein intake from PN support is adequate as it meets 116-140% of est protein needs. Pt noted she is still with discomfort and pain. Est Energy needs BW 50 [id number] kcals (25-30 kcal/kgBW), Est Protein needs: 50-60gms/day (1.0-1.2 gm/kgBW). reassessed Will continue to monitor and reassess prn. LABS: GLU 171 H CA 7.8 L ALB 2.0 L GI: Pt had 2 BM on 03/23 per RN doc BS: 9 high risk. Refer to wound assessment report for full details. PES: 1) Increased nutrient needs aeb pt is NPO r/t pt with no PO intake 2) Inadequate oral intake aeb pt wt. loss of >10lbs in 1 month r/t pt loss of appetite, immobility and continued constipation Comments: Will continue to monitor NPO status, PN tolerance, skin status, pertinent labs and weight trends. Will f/u in 2-3 days. 1) Advance PN support to meet > 75% of needs. (Resolved) 2) Gradually advance pt to oral diet when medically feasible and as tolerated. 3) Continue current plan of care
--- NOTE | 2020-03-24 15:52 | NUR ---
PT'S DAUGHTER UPDATED ON PT STATUS VIA TELEPHONE.
[2020-03-24] MEDS ORDERED: TPN PER PHARMACY IV NR ×9 (20:00)
[2020-03-24] MEDS: ATORVASTATIN 20 MG TAB PO SCH (21:02)
[2020-03-24] MEDS: MORPHINE SULF INJ 2 MG/ML SYRINGE 1ML IV PRN (21:30)
[2020-03-25] VITALS (96 sets, daily range): BP systolic 59–204; BP diastolic 33–197
[2020-03-25] MEDS: MORPHINE SULF INJ 2 MG/ML SYRINGE 1ML IV PRN ×7 (01:30→19:01)
[2020-03-25] MEDS: NOREPINEPHRINE 8 MG/250ML KIT 250 ML IV SCH (03:30)
[2020-03-25 05:05] LABS: Basophils # (auto) 0 10 ^3/uL (0-0.2); Eosinophils # (auto) 0 10 ^3/uL (0-0.8); Hemoglobin 9.3 g/dL (12.2-16.2); Lymphocytes # (auto) 1.2 10 ^3/uL (0.4-5.4); Monocytes # (auto) 0.7 10 ^3/uL (0-1.3); Nucleated Red Blood Cells % 0.1 %; White Blood Cell 9.6 10^3/uL (4.4-10.8)
[2020-03-25 05:08] LABS: Basophils % (auto) 0.1 % (0.0-2.0); Eosinophils % (auto) 0.4 % (0.0-7.0); Hematocrit 28.9 % (36.0-46.0); Lymphocytes % (auto) 12.9 % (10.0-50.0); Mean Corpuscular Hemoglobin 26.7 pg (28.0-32.0); Mean Corpuscular Volume 83.2 fL (80.0-100.0); Monocytes % (auto) 7.3 % (0.0-12.0); Neutrophils # (auto) 7.7 10 ^3/uL (1.6-8.6); Neutrophils % (auto) 79.3 % (37.0-80.0); Platelet Count (auto) 304 10^3/uL (140-450); Red Blood Cells 3.48 10^6/uL (4.0-5.20); Red Cell Distribution Width 16.4 % (11.8-14.3)
[2020-03-25 05:19] LABS: Chloride 107 mmol/L (98-107); Potassium 3.9 mmol/L (3.5-5.1); Sodium 140 mmol/L (136-145)
[2020-03-25] MEDS: metroNIDAZOLE 500MG/100ML 100 ML IV SCH ×3 (05:21→22:03)
[2020-03-25 05:26] LABS: Albumin 2.2 g/dL (3.4-5.0); Anion Gap 5 (5-15); Blood Urea Nitrogen 23 mg/dL (7-18); Carbon Dioxide 28 mmol/L (21-32); Glucose 78 mg/dL (74-106); Magnesium 2.2 mg/dL (1.6-2.6)
[2020-03-25 05:40] LABS: Alanine Aminotransferase 16 U/L (13-56); Alkaline Phosphatase 72 U/L (45-117); Aspartate Aminotransferase 15 U/L (15-37); BUN/Creatinine Ratio 54.8; Bilirubin, Total 0.3 mg/dL (0.2-1.0); GFR African American 184 mL/min; GFR Non-African American 152 mL/min; Phosphorus 2.2 mg/dL (2.5-4.90); Total Protein 5.2 g/dL (6.4-8.2)
[2020-03-25] MEDS: InsuLIN REG 1unit/0.01ml Soln (100units/ml) SC SCH ×4 (06:00→17:25)
[2020-03-25] MEDS: ACCU-CHEK COMFORT CURVE STRIP VI SCH ×4 (06:00→17:25)
[2020-03-25] MEDS ORDERED: POTASSIUM PHOSPHATE 22 MEQ in SODIUM CHL 0.9% 100 ML IV ONE (08:15)
[2020-03-25] MEDS: CITALOPRAM HYDROBR 20 MG TAB PO SCH (09:05)
[2020-03-25] MEDS: levoFLOXacin 500MG 100 ML IV SCH (09:31)
[2020-03-25] MEDS: FAMOTIDINE (10MG/ML) 2ML VL IV SCH (09:31)
[2020-03-25] MEDS: SODIUM CHLOR 0.9% PF (SALINE LOCK) 10ML VIAL/SYR IV SCH ×2 (09:31→22:03)
--- NOTE | 2020-03-25 11:16 | NUR ---
WOUND CARE NOTE: Wound care in to see patient for skin integrity monitoring. Patient continue resting on air mattress in ICU Rm. 101. Patient has been extubated and now in O2 via NC. Patient is awake, alert and able to verbalize needs. She's in no stated pain at this time, however reports of pain on movement. Patient is max assist in turning and repositioning. Her Gonzalo score is 9. Patient's nurse medicated patient for pain prior skin assessment. Patient's sacral, buttocks continue to display bright and dark, blanchable redness with dry peeling skin from MASD. Marizol care given, new photograph taken for reference, applied Z Guard cream and covered upper sacrum with Opti foam sacral dressing. Repositioned patient for comfort facing her Rt. side, redistributed pressure points with pillows. Patient tolerated well. MANNY Mcmullen at bedside. RECOMMENDATION:Continuation of all wound care orders prescribed by MD, continue with skin/wound plan of care, continue monitoring by wound care while patent is hospitalized. Addendum: 03/25/20 at 1625 by Beth Awad RN Amended: Links added.
[2020-03-25] MEDS ORDERED: SODIUM PHOSP 20MEQ(15MMOL) IN NS 100 ML IV ONE (12:00)
--- NOTE | 2020-03-25 14:00 | NUR ---
ALLOWED PT TO SPEAK TO PT'S DAUGHTER VIA CORDLESS TELEPHONE. ALSO, PT STATES SHE DOES NOT HAVE A , AND WOULD PREFER NOT TO SHARE INFO WITH HER MALE ACQUAINTANCE, ALTHOUGH HE DOES HAVE THE PASSWORD.
--- NOTE | 2020-03-25 19:00 | NUR ---
Opening Shift Note Received pt laying in bed. Alert and oriented times four on nasal cannula 2 lpm. Full assessment done see interventions. Ice chips provided for pt. No complaints of pain at this time. Will continue to monitor closely. Levophed gtt at 3mcg. See IV spreadsheet for details.
[2020-03-25] MEDS ORDERED: TPN PER PHARMACY IV NR ×9 (20:00)
--- NOTE | 2020-03-25 20:00 | NUR ---
A-line zeroed with an inaccurate wave form and reading does not correlate with cuff pressures. Will go off cuff pressures for now
[2020-03-25] MEDS: ATORVASTATIN 20 MG TAB PO SCH (22:03)
[2020-03-26] VITALS (95 sets, daily range): BP systolic 85–196; BP diastolic 39–172
[2020-03-26] MEDS: MORPHINE SULF INJ 2 MG/ML SYRINGE 1ML IV PRN ×6 (02:14→18:15)
[2020-03-26 04:37] LABS: Bilirubin, Total 0.4 mg/dL (0.2-1.0); Calcium 7.8 mg/dL (8.5-10.1); Magnesium 2.2 mg/dL (1.6-2.6); Phosphorus 3.2 mg/dL (2.5-4.90); Total Protein 5.3 g/dL (6.4-8.2)
[2020-03-26 04:40] LABS: Basophils # (auto) 0.1 10 ^3/uL (0-0.2); Basophils % (auto) 0.6 % (0.0-2.0); Eosinophils # (auto) 0.1 10 ^3/uL (0-0.8); Eosinophils % (auto) 1.4 % (0.0-7.0); Hematocrit 29.6 % (36.0-46.0); Hemoglobin 9.7 g/dL (12.2-16.2); Lymphocytes # (auto) 1.3 10 ^3/uL (0.4-5.4); Lymphocytes % (auto) 15.3 % (10.0-50.0); Mean Corpuscular Hemoglobin 27.5 pg (28.0-32.0); Mean Corpuscular Hgb Conc. 32.9 g/dL (32.0-36.0); Mean Corpuscular Volume 83.8 fL (80.0-100.0); Monocytes # (auto) 0.6 10 ^3/uL (0-1.3); Monocytes % (auto) 7.6 % (0.0-12.0); Neutrophils # (auto) 6.2 10 ^3/uL (1.6-8.6); Neutrophils % (auto) 75.1 % (37.0-80.0); Platelet Count (auto) 316 10^3/uL (140-450); Red Blood Cells 3.53 10^6/uL (4.0-5.20); Red Cell Distribution Width 16.5 % (11.8-14.3); White Blood Cell 8.3 10^3/uL (4.4-10.8)
--- NOTE | 2020-03-26 04:44 | NUR ---
Cares Pt given complete bed bath and skin care performed to sacrum. Pt tolerated well.
[2020-03-26] MEDS: InsuLIN REG 1unit/0.01ml Soln (100units/ml) SC SCH ×4 (05:34→18:00)
[2020-03-26] MEDS: ACCU-CHEK COMFORT CURVE STRIP VI SCH ×4 (05:34→18:07)
[2020-03-26] MEDS: metroNIDAZOLE 500MG/100ML 100 ML IV SCH ×3 (06:09→22:00)
--- NOTE | 2020-03-26 07:12 | NUR ---
Report given to day shift RN. Care endorsed
[2020-03-26] MEDS: CITALOPRAM HYDROBR 20 MG TAB PO SCH (09:44)
[2020-03-26] MEDS: FAMOTIDINE (10MG/ML) 2ML VL IV SCH (09:44)
[2020-03-26] MEDS: levoFLOXacin 500MG 100 ML IV SCH (09:44)
[2020-03-26] MEDS: SODIUM CHLOR 0.9% PF (SALINE LOCK) 10ML VIAL/SYR IV SCH ×2 (09:45→22:00)
--- NOTE | 2020-03-26 10:15 | NUR ---
ALEX WARE, CORRELATES WELL WITH bp CUFF, WILL UTILIZE BOTH PRESSURES. VSS ON LEVOPHED GTT, TRITRATED TO AMINTAIN SBP >90 MAP >65, TPN INFUSING, BOTH VIA MARLIN PICC (CDI). FREQUENT PAIN MANAGEMENT AND INCENTIVE SPIR Q 1 HOUR REMAIN. NO ACUTE DISTRESS NOTED A THIS TIME. AM CARE PROVIDED WITH ASSIST.
[2020-03-26] MEDS: ALBUMIN 25% 100 ML IV SCH ×2 (12:00→12:54)
[2020-03-26] MEDS: LORazepam 0.5 MG TAB PO PRN ×3 (14:00→17:37)
--- NOTE | 2020-03-26 14:19 | NUR ---
Nutrition Followup Notes Wt: 66.8 kg Pt extubated 03/24 sleeping when rounded this am. Per records pt with diverticular perforation. Pt is currently NPO with PN support @ 60 ml/hr providing 1515 kcals, 70 gm proteins and 1235 NPCs. Pt with adequate energy intake from PN support as it meets 101-121% of est caloric needs. Protein intake from PN support is adequate as it meets 116-140% of est protein needs. Pt noted she is still with discomfort and pain. Est Energy needs BW 50 [id number] kcals (25-30 kcal/kgBW), Est Protein needs: 50-60gms/day (1.0-1.2 gm/kgBW). reassessed Will continue to monitor and reassess prn. LABS: GLU 132 H CA 7.8 L, ALB 2.0 L GI: Pt had 2 BM on 03/23 per RN doc BS: 10 high risk. Refer to wound assessment report for full details. PES: 1) Increased nutrient needs aeb pt is NPO r/t pt with no PO intake 2) Inadequate oral intake aeb pt wt. loss of >10lbs in 1 month r/t pt loss of appetite, immobility and continued constipation Comments: Will continue to monitor NPO status, PN tolerance, skin status, pertinent labs and weight trends. Will f/u in 2-3 days. 1) Advance PN support to meet > 75% of needs. 2) Gradually advance pt to oral diet when medically feasible and as tolerated. 3) Continue current plan of care
--- NOTE | 2020-03-26 15:03 | NUR ---
CALLED PT TWICE, LEFT VM TWICE, NEW ORDER PLACED. SPOKE WITH DR. WOOTEN MEDIA LIBRARIAN FOR FISCHEL, HE PREFERS NOT TO ADVANCE TO CLEAR LIQUIDS AT THIS TIME, PT SHOULD REMAIN WITH 60CC FLUIDS, WILL RE-EVALUATE ON TOMORROW.
[2020-03-26] MEDS: fentaNYL Drip 2500mCg/250mlNS 250 ML IV SCH (15:22)
[2020-03-26] MEDS: MIDAZOLAM DRIP 50 mg/50mL 50 ML IV SCH (15:37)
--- NOTE | 2020-03-26 16:44 | NUR ---
Pt OOB to chair moderate assist RN and PT. Sats 92-94% on RA, resumed 2L NC with O2 sats 96%. Pt tolerating chair ok, but c/o dizziness and pressure in buttocks, will page PT. Aprox time in chair 30 mins.
[2020-03-26] MEDS ORDERED: TPN PER PHARMACY IV NR ×10 (20:00)
--- NOTE | 2020-03-26 20:00 | NUR ---
Opening Shift Note Report received from day shift RN. Pt resting with eyes open. Alert and oriented times four. Pt denies pain at this time. Full assessment done, see interventions. B/P 107/63. Levophed gtt turned off at this time. Will continue to monitor b/p closely and assess need to turn gtt back on. Pt remains on 2lpm nasal cannula. VSS. Pt in full view of RN.
[2020-03-26] MEDS: ATORVASTATIN 20 MG TAB PO SCH (22:00)
[2020-03-27] VITALS (38 sets, daily range): BP systolic 70–140; BP diastolic 35–71
[2020-03-27] MEDS: fentaNYL Drip 2500mCg/250mlNS 250 ML IV SCH (02:13)
[2020-03-27] MEDS: MIDAZOLAM DRIP 50 mg/50mL 50 ML IV SCH (02:13)
[2020-03-27] MEDS: NOREPINEPHRINE 8 MG/250ML KIT 250 ML IV SCH ×2 (02:14→03:30)
[2020-03-27 04:14] LABS: Basophils # (auto) 0 10 ^3/uL (0-0.2); Basophils % (auto) 0.5 % (0.0-2.0); Eosinophils # (auto) 0.1 10 ^3/uL (0-0.8); Eosinophils % (auto) 1.4 % (0.0-7.0); Hematocrit 28.5 % (36.0-46.0); Hemoglobin 9.5 g/dL (12.2-16.2); Lymphocytes # (auto) 0.9 10 ^3/uL (0.4-5.4); Lymphocytes % (auto) 13.5 % (10.0-50.0); Mean Corpuscular Hemoglobin 27.4 pg (28.0-32.0); Mean Corpuscular Hgb Conc. 33.2 g/dL (32.0-36.0); Mean Corpuscular Volume 82.7 fL (80.0-100.0); Monocytes # (auto) 0.4 10 ^3/uL (0-1.3); Monocytes % (auto) 5.9 % (0.0-12.0); Neutrophils # (auto) 5.2 10 ^3/uL (1.6-8.6); Neutrophils % (auto) 78.7 % (37.0-80.0); Platelet Count (auto) 286 10^3/uL (140-450); Red Blood Cells 3.45 10^6/uL (4.0-5.20); Red Cell Distribution Width 16.4 % (11.8-14.3); White Blood Cell 6.6 10^3/uL (4.4-10.8)
[2020-03-27 04:26] LABS: Calcium 8.2 mg/dL (8.5-10.1); Potassium 4.1 mmol/L (3.5-5.1)
[2020-03-27 04:32] LABS: Albumin 2.6 g/dL (3.4-5.0); BUN/Creatinine Ratio 38.5; Bilirubin, Total 0.4 mg/dL (0.2-1.0); Magnesium 2.3 mg/dL (1.6-2.6); Phosphorus 2.7 mg/dL (2.5-4.90); Pre Albumin 15.6 mg/dL (20.0-40.0); Total Protein 5.6 g/dL (6.4-8.2)
[2020-03-27] MEDS: ACCU-CHEK COMFORT CURVE STRIP VI SCH ×5 (06:00→23:30)
[2020-03-27] MEDS: metroNIDAZOLE 500MG/100ML 100 ML IV SCH ×3 (06:00→21:35)
[2020-03-27] MEDS: InsuLIN REG 1unit/0.01ml Soln (100units/ml) SC SCH ×5 (06:00→23:31)
--- NOTE | 2020-03-27 06:07 | NUR ---
CARES Bed bath provided and linen changed. Barrier cream to sacrum with excoriation and peeling skin to sacral region. Optifoam applied. Pt tolerated well
--- NOTE | 2020-03-27 07:21 | NUR ---
End of shift report given to MANNY Jurado
--- NOTE | 2020-03-27 08:00 | NUR ---
AM ASSESSMENT COMPLETED AWAKE ,ALERT AND ORIENTED S/P COLOVESICULAR REPAIR, PT WAS EXTUBATED YESTERDAY. NOW DOING WELL ON 2 L NC. SPO2 IN THE MID 90'S NO C/O S.O.B, LS CTA AND DIMINISHED ON THE BASIS. SR, NO ECTOPY. LUQ STOMA MOIST & PINK MINIMAL OUTPUT.RUQ JULIO CESAR TO BULB SUCTION DRAINING MINIMAL SEROSANGUINEOUS DRAINAGE. PT ON A CLEAR LIQUID DIET. FC DRAINING DARK YELLOW URINE TO GRAVITY WITH A SECUREMENT DEVICE IN PLACE. PT HAS EXCORIATION ON COCCYX . ENCOURAGED HER TO ALLOW REPOSITIONING EVERY TWO HOURS PT VERBALIZED UNDERSTANDING. CALL WITHIN REACH. EDUCATED ON POC. PT VERBALIZED UNDERSTANDING.
--- NOTE | 2020-03-27 09:00 | NUR ---
Pt requested therapy later. Addendum: 03/27/20 at 1202 by Malik Montes DRILLING CONTRACTOR Amended: Links added.
--- NOTE | 2020-03-27 09:10 | NUR ---
DR. AGOSTO ROUNDING ON PT , NEW ORDERS RECEIVED TO DOWNGRADE PT TO [facility] STATUS.
[2020-03-27] MEDS: levoFLOXacin 500MG 100 ML IV SCH (10:37)
[2020-03-27] MEDS: CITALOPRAM HYDROBR 20 MG TAB PO SCH (10:37)
[2020-03-27] MEDS: FAMOTIDINE (10MG/ML) 2ML VL IV SCH (10:38)
[2020-03-27] MEDS: SODIUM CHLOR 0.9% PF (SALINE LOCK) 10ML VIAL/SYR IV SCH ×2 (10:38→21:35)
--- NOTE | 2020-03-27 11:00 | NUR ---
Pt again asked to have therapy later. Addendum: 03/27/20 at 1202 by Malik Montes PTA Amended: Links added.
[2020-03-27] MEDS: MORPHINE SULF INJ 2 MG/ML SYRINGE 1ML IV PRN ×2 (11:02)
--- NOTE | 2020-03-27 11:22 | NUR ---
PAIN MEDICATED WITH 2 MG MS IVP FOR 1010 INCISIONAL PAIN
--- NOTE | 2020-03-27 11:35 | NUR ---
Pt stated she will not participate in therapy today. Addendum: 03/27/20 at 1202 by Malik Montes PTA Amended: Links added.
--- NOTE | 2020-03-27 12:00 | NUR ---
PAIN PT SLEEPING, NO S+S OF PAIN AT THIS TIME. PT REFUSED PHYSICAL THERAPY ON THREE DIFFERENT OCCASIONS TODAY. PHYSICAL THERAPIST JATINDER NOTIFIED ME. I WITNESS HIM ASKING PT TO DO PHYSICAL THERAPY TWO OUT OF THREE OCCASIONS.
[2020-03-27] MEDS: PROMETHAZINE HCL 25 MG/ML 1ML IV PRN (12:32)
--- NOTE | 2020-03-27 12:33 | NUR ---
BG 129, NO INSULIN COVERAGE NEEDED. PT REFUSED LUNCH. PT REMAINS ON TPN AT 60 ML/HR.
--- NOTE | 2020-03-27 17:10 | NUR ---
JOSE D BRENNAN received to [facility] from ICU via hopital bed on conveyor monitor, and portable 02. [facility] unit monitoring and oxygen[facility] Patient oriented to Madhavi chu RN, unit, room, bed, and unit policies regarding patient care and visiting hours. All questions and concerns addressed, patient verbalized understanding. See interventions for complete assessment. Bed locked on low position, side rails up x2, bed alarms on at all times, call barrios within reach, intructed to call for needed assistance. Will continue to monitor.
--- NOTE | 2020-03-27 17:15 | NUR ---
TRANSFERRED TO [facility] VIA BED WITH CARDIAC MONITORING , O2 AT 2 L / MIN BY MANNY VALLEJO AND CCT ABDELRAHMAN. REPORT WAS GIVEN TO MANNY Latham PRIOR TO PT BEING TRANSFERRED THERE.
--- NOTE | 2020-03-27 18:29 | NUR ---
Received call from patient's daughter Ana Maria who's able to provide password. Updated on patient's status and POC, verbalized understanding. All questions and concerns addressed.
[2020-03-27] MEDS ORDERED: TPN PER PHARMACY IV NR ×10 (20:00)
--- NOTE | 2020-03-27 20:30 | NUR ---
Incentive spirometer Instructed pt on IS use, able to reach about 500 ml each breathe
[2020-03-27] MEDS: ATORVASTATIN 20 MG TAB PO SCH (21:36)
[2020-03-28 00:08] VITALS: BP 117/49
[2020-03-28 03:51] LABS: Calcium 8.2 mg/dL (8.5-10.1); Potassium 4.2 mmol/L (3.5-5.1)
[2020-03-28 03:56] LABS: Albumin 2.4 g/dL (3.4-5.0); BUN/Creatinine Ratio 38.5; Bilirubin, Total 0.3 mg/dL (0.2-1.0); Magnesium 2.1 mg/dL (1.6-2.6); Phosphorus 2.8 mg/dL (2.5-4.90); Total Protein 5.7 g/dL (6.4-8.2)
--- NOTE | 2020-03-28 04:00 | NUR ---
Patient bathe/linen change Patient given complete bath. Skin integrity assessed for any changes. Linens and gown changed, Z-guard applied to sacrum and covered with optifoam. Patient repositioned for comfort.
--- NOTE | 2020-03-28 04:15 | NUR ---
Wound dressing of abdominal surgical incision done, cassi intact, JULIO CESAR drain and colostomy in place. Abdominal binder applied
[2020-03-28 04:24] VITALS: BP 133/63
[2020-03-28] MEDS: InsuLIN REG 1unit/0.01ml Soln (100units/ml) SC SCH ×3 (06:00→18:11)
[2020-03-28] MEDS: ACCU-CHEK COMFORT CURVE STRIP VI SCH ×3 (06:11→18:01)
[2020-03-28] MEDS: metroNIDAZOLE 500MG/100ML 100 ML IV SCH ×3 (06:13→22:06)
--- NOTE | 2020-03-28 07:45 | NUR ---
OPENING SHIFT NOTE Received report from NOC RNNerissa. Assumed care of patient. Received patient lying in bed, connected to bedside monitor with alarms in place. Patient is A&Ox3, denies pain and has no other s/s of distress noted. Patient on 2L NC with O2 sats >92%. Patient with right upper arm DL PICC line with TPN infusing at 60ml/hr and NS at TKO. Dressing is C/D/I. Patient with abernathy draining clear yellow UOP. Midline incision C/D/I, JULIO CESAR draining with scant drainage noted. Colostomy to LLQ with red round stoma and scant brown liquid drainage noted in bag. Bed in lowest position, rails x2 up and call light within reach. Updated on plan of care. Will continue to monitor.
[2020-03-28 08:00] VITALS: BP 138/63
[2020-03-28] MEDS: SODIUM CHLOR 0.9% PF (SALINE LOCK) 10ML VIAL/SYR IV SCH ×2 (10:00→22:06)
[2020-03-28] MEDS: levoFLOXacin 500MG 100 ML IV SCH (10:51)
[2020-03-28] MEDS: CITALOPRAM HYDROBR 20 MG TAB PO SCH (10:51)
[2020-03-28] MEDS: FAMOTIDINE (10MG/ML) 2ML VL IV SCH (10:51)
--- NOTE | 2020-03-28 11:04 | NUR ---
Nutrition Followup Notes Wt: 68.4 kg Pt sleeping when rounded this am. Per records pt with diverticular perforation. Pt is currently on clear liq diet with no PO reocrded yet along with PN support @ 60 ml/hr providing 1515 kcals, 70 gm proteins and 1235 NPCs. Pt with adequate energy intake from PN support as it meets 101-121% of est caloric needs. Protein intake from PN support is adequate as it meets 116-140% of est protein needs. Est Energy needs BW 50 [id number] kcals (25-30 kcal/kgBW), Est Protein needs: 50-60gms/day (1.0-1.2 gm/kgBW). reassessed Will continue to monitor and reassess prn. LABS: CA 8.2 L ALB 2.4 L GI: Pt had 2 BM on 03/23 per RN doc BS: 10 high risk. Refer to wound assessment report for full details. PES: 1) Increased nutrient needs aeb pt is NPO r/t pt with no PO intake 2) Inadequate oral intake aeb pt wt. loss of >10lbs in 1 month r/t pt loss of appetite, immobility and continued constipation Comments: Will continue to monitor PO intake, PN tolerance, skin status, pertinent labs and weight trends. Will f/u in 2-3 days. 1) Advance PN support to meet > 75% of needs. 2) Advance diet when medically feasible and as tolerated. 3) Continue current plan of care
[2020-03-28 11:52] VITALS: BP 136/67
--- NOTE | 2020-03-28 15:22 | NUR ---
PHYSICAL THERAPY SACHI Szymanski at bedside getting patient out of bed to chair.
--- NOTE | 2020-03-28 15:45 | NUR ---
Patient returned to bed with moderate assistance x2 staff.
[2020-03-28 16:00] VITALS: BP 108/61
--- NOTE | 2020-03-28 18:49 | NUR ---
END OF SHIFT NOTE Patient resting in bed. Patient continues to have poor appetite and states a feeling of being bloated. Patient with no s/s of distress noted. Patient was able to tolerate 30min up in chair this afternoon. TPN continues to infuse at 60ml/hr. Barnett draining clear yellow UOP. Bed in lowest position, rails x3 up and call light within reach. Report to be given to oncoming SHAWNA RNSteph.
[2020-03-28 20:00] VITALS: BP 131/70
[2020-03-28] MEDS: TPN PER PHARMACY IV NR ×10 (20:00)
[2020-03-28] MEDS: ATORVASTATIN 20 MG TAB PO SCH (22:06)
[2020-03-29] VITALS: BP 128/65
[2020-03-29] MEDS: TPN PER PHARMACY IV NR ×10 (00:21)
[2020-03-29] MEDS: ACCU-CHEK COMFORT CURVE STRIP VI SCH ×2 (00:22→07:04)
[2020-03-29] MEDS: InsuLIN REG 1unit/0.01ml Soln (100units/ml) SC SCH ×2 (00:23→06:00)
[2020-03-29 04:00] VITALS: BP 140/62
--- NOTE | 2020-03-29 07:00 | NUR ---
Pt remained stable this shift. No S/S of distress. Decreased appetite, states feels bloated when eating. JULIO CESAR output 10ml. Dressing CDI. Report given, care endorsed.
[2020-03-29] MEDS: metroNIDAZOLE 500MG/100ML 100 ML IV SCH ×3 (07:04→20:49)
[2020-03-29 07:23] LABS: Albumin 2.2 g/dL (3.4-5.0); Calcium 8.2 mg/dL (8.5-10.1); Magnesium 2.2 mg/dL (1.6-2.6); Potassium 3.8 mmol/L (3.5-5.1)
[2020-03-29 07:37] LABS: BUN/Creatinine Ratio 53.3; Bilirubin, Total 0.2 mg/dL (0.2-1.0); Phosphorus 2.9 mg/dL (2.5-4.90); Total Protein 5.9 g/dL (6.4-8.2)
[2020-03-29 07:45] VITALS: BP 143/74
--- NOTE | 2020-03-29 09:20 | NUR ---
FAMILY CALLED FAMILY PROVIDED PW. UPDATED ON PT STATUS AND POC. NO OTHER QUESTIONS AT THE MOMENT.
[2020-03-29] MEDS: levoFLOXacin 500MG 100 ML IV SCH (09:59)
[2020-03-29] MEDS: FAMOTIDINE (10MG/ML) 2ML VL IV SCH (09:59)
[2020-03-29] MEDS: SODIUM CHLOR 0.9% PF (SALINE LOCK) 10ML VIAL/SYR IV SCH ×2 (10:02→20:50)
[2020-03-29] MEDS: CITALOPRAM HYDROBR 20 MG TAB PO SCH (10:02)
[2020-03-29] MEDS: MORPHINE SULF INJ 2 MG/ML SYRINGE 1ML IV PRN ×2 (10:41→20:30)
--- NOTE | 2020-03-29 10:44 | NUR ---
1045 03/29/[address] Huerta regarding the plan of care for this patient-he stated possible discharge tomorrow or Sunday. I spoke with patient's nurse Miguel and asked him to send me specifications on colostomy bag/supplies that will be needed for colostomy care upon discharge.
[2020-03-29 12:00] VITALS: BP 129/64
[2020-03-29 16:00] VITALS: BP 116/59
--- NOTE | 2020-03-29 16:28 | NUR ---
re-assessment Patient is not medically stable for discharge yet. Patient is not eating and too weak to ambulate. Per patients daughter who lives in [place] she was wondering if patient could get home health in [place]. Im am [facility] with [facility] to see if they service that area. PT has recommended SNF. I will contact Tina casework supervisor for further clarification if patient is appropriate for SNF. Addendum: 03/29/20 at 1632 by Cielo MARISCAL Amended: Links added.
--- NOTE | 2020-03-29 16:45 | NUR ---
PT RESTING IN BED NO DISTRESS NOTED. BED LOCKED FOR SAFETY AND CALL LIGHT IS WITHIN REACH. WILL CONTINUE TO MONITOR.
[2020-03-29 20:00] VITALS: BP 125/66
[2020-03-29] MEDS ORDERED: TPN PER PHARMACY IV NR ×10 (20:00)
--- NOTE | 2020-03-29 20:00 | NUR ---
SHIFT OPENING NOTE RECEIVED PATIENT AWAKE, ALERT AND ORIENTED X4. NO SOB OR DISTRESS NOTED. COMPLAINS OF 8/10 ABDOMINAL PAIN. WILL MEDICATE WHEN DUE. ON 2L N/C POX 99%. ABDOMINAL DRESSING IS C/D/I, JULIO CESAR NOTED TO RIGHT LOWER QUADRANT AND COLOSTOMY TO LEFT QUADRANT. ABDOMINAL BINDER IS IN PLACE. PICC LINE TO THE LEFT UPPER ARM KVO. PHYSICAL ASSESSMENT COMPLETED, SEE INTERVENTIONS. SCD'S ON. INSTRUCTED ON POC AND TO CALL FOR ASSIST NEEDED. BED IS IN THE LOWEST POSITION WITH SIDE RAILS UP X2, CALL LIGHT IS WITHIN REACH.
[2020-03-29] MEDS: ATORVASTATIN 20 MG TAB PO SCH (20:50)
[2020-03-30] VITALS: BP 119/55
--- NOTE | 2020-03-30 01:00 | NUR ---
ROUNDS PATIENT IS QUIETLY LAYING IN BED SLEEPING. NO SOB, DISTRESS OR PAIN NOTED. VS STABLE. WILL CONTINUE TO CLOSELY MONITOR.
[2020-03-30 04:00] VITALS: BP 132/66
--- NOTE | 2020-03-30 04:15 | NUR ---
PICC Line Dressing Changes PICC line dressing change done with a sterile technique to the right upper arm. Cleansed with chloraprep scrub/betadine. Stat lock, and bio-patch as available. Occlusive dressing applied.
--- NOTE | 2020-03-30 04:30 | NUR ---
MORNING HYGIENE CARE BED BATH PERFORMED USING CHG WIPES. GOWN CHANGED. MELINDA CARE AND CRUZ CARE DONE. PARTIAL LINEN CHANGED. SKIN REASSESSED FOR CHANGES WITH NONE PRESENT. PATIENT REPOSITIONED FOR COMFORT. TOLERATED IT WELL.
[2020-03-30] MEDS: metroNIDAZOLE 500MG/100ML 100 ML IV SCH ×3 (05:38→20:49)
--- NOTE | 2020-03-30 07:10 | NUR ---
END OF SHIFT REPORT GIVEN AND CARE ENDORSED TO JANNY RN. PATIENT LAYING IN BED RESTING. NO DISTRESS OR PAIN NOTED.
[2020-03-30 07:45] VITALS: BP 132/59
--- NOTE | 2020-03-30 07:45 | NUR ---
Opening Shift Note Assumed care of patient, awake and alert. No S/S of distress/SOB on O2 NC 1 LPM O2 saturation 99%. Complaining of pain 8/10 and nausea, will provide medication for pain and nauseated. Instructed on POC and to call for assist PRN, will continue to monitor for changes Q1hr and PRN. Patient refused mouth care and breakfast at this time due to pain and nauseated, will follow up later. Addendum: 03/30/20 at 0920 by IDA NATHAN RN RN Pupil 4 mm reac to light both eyes, on specialty bed
[2020-03-30] MEDS: MORPHINE SULF INJ 2 MG/ML SYRINGE 1ML IV PRN (07:50)
[2020-03-30] MEDS: FAMOTIDINE (10MG/ML) 2ML VL IV SCH (07:50)
[2020-03-30] MEDS: PROMETHAZINE HCL 25 MG/ML 1ML IV PRN (07:50)
--- NOTE | 2020-03-30 08:40 | NUR ---
Dr. Thomas at the bedside, seen and examined patient at this time, plan of care discussed with patient. Removed JULIO CESAR drain at this time, cover with gauze and tape. Incision leave it open to air, received order for diet : advance as tolerated.
--- NOTE | 2020-03-30 08:48 | NUR ---
Patient refused breakfast, offered Apple juice at this time, no N/V noted.
--- NOTE | 2020-03-30 09:50 | NUR ---
Received a call from Ana Maria (daughter), password provided. Updated patient condition and POC.
[2020-03-30] MEDS: SODIUM CHLOR 0.9% PF (SALINE LOCK) 10ML VIAL/SYR IV SCH ×2 (09:57→20:50)
[2020-03-30] MEDS: levoFLOXacin 500MG 100 ML IV SCH (09:57)
[2020-03-30] MEDS: CITALOPRAM HYDROBR 20 MG TAB PO SCH (09:57)
--- NOTE | 2020-03-30 10:07 | NUR ---
I spoke with patient's nurse Deb regarding the plan of care for this patient. I let Deb know that we need a social service consult placed for specific colostomy supplies/lot # of colostomy bag so we can order supplies for home if needed.
[2020-03-30] MEDS ORDERED: IOTHALAMATE MEGLUMINE INJ 250ML BOT UR ONE (10:20)
--- NOTE | 2020-03-30 10:20 | NUR ---
Received a call from case liner regarding Colostomy supplies, called and spoke to wound care nurse. Recommendation was advised by wound care nurse. Will update to case liner.
[2020-03-30 11:37] VITALS: BP 115/60
[2020-03-30] MEDS ORDERED: NutriHep RTU 240 mL Unflavored PO SCH (12:00)
--- NOTE | 2020-03-30 12:00 | NUR ---
Patient was transferred from Bed to chair, sitting on the chair for Lunch.
[2020-03-30] MEDS: Glucerna Carbsteady SHAKE Stawberry 8oz PO SCH ×2 (12:09→17:14)
--- NOTE | 2020-03-30 12:36 | NUR ---
re-assessment Spoke with patients daughter Ana Maria and she informed me she wants to take patient home with her on discharge. I have offered Ana Maria assisted living and SNF options. Ana Maria has refused assisted living and SNF. Patient will need colostomy supplies Tina showcase trimmer will satisfy order. Patient will need home health for PT. I am looking for home health that can service [facility]. I have provided Ana Maria with resources for [facility] and [facility]. Ana Maria will have a caregiver for patient to help her at home. Ana Maria will come to the [facility] for teaching of colostomy and to pickler helper supplies for patient until her order arrives. Ana Maria verbalized understanding and agreed to discharge plan home with her. Addendum: 03/30/20 at 1243 by Cielo MARISCAL Amended: Links added.
--- NOTE | 2020-03-30 12:40 | NUR ---
Patient had 1 box of Glucerna, 50% of soup and ice cream, no N/V noted.
--- NOTE | 2020-03-30 12:42 | NUR ---
While sitting on the chair HR 110-115/min, complaining shaking, no dizziness, BP 100/65 mmHg, Room air O2 saturation 96%. Transferred patient to bed.
--- NOTE | 2020-03-30 12:43 | NUR ---
Patient was taking to Radiology via hospital bed. Patient was transferred from Chair to bed by PT, no accident noted.
--- NOTE | 2020-03-30 12:54 | NUR ---
Nutrition Followup Notes Wt: 68.2 kg Pt sleeping when rounded this am. Per records pt with diverticular perforation. Pt is currently on clear liq diet with fair appetite aeb ave of 45% PO intake per RN doc. Noted pt to be NPO d/t pt is scheduled to have another medical procedure per MD note. Pt PN support is suspended for now. Est Energy needs BW 50 [id number] kcals (25-30 kcal/kgBW), Est Protein needs: 50-60gms/day (1.0-1.2 gm/kgBW). reassessed Will continue to monitor and reassess prn. LABS: CA 8.2 L ALB 2.2 L AST 12 L GI: Pt is now with a colostomy, with 25ml gastric output on 03/30 per RN doc BS: 17 mod risk. Refer to wound assessment report for full details. PES: 1) Increased nutrient needs aeb pt is NPO r/t pt with no PO intake 2) Inadequate oral intake aeb pt wt. loss of >10lbs in 1 month r/t pt loss of appetite, immobility and continued constipation Comments: Will continue to monitor PO intake, PN tolerance, skin status, pertinent labs and weight trends. Will f/u in 2-3 days. 1) Advance PN support to meet > 75% of needs. 2) Advance diet when medically feasible and as tolerated. 3) Continue current plan of care
--- NOTE | 2020-03-30 13:08 | NUR ---
re-assessment I called and informed Ana Maria I was unable to find home health that services the [facility]. Ana Maria informed me she will do PT for patient herself in her home. Ana Maria is requesting PT to show her what to do when she comes to bedside for colostomy teaching. I will inform Dr Huerta. I have offered Ana Maria SNF and assisted living options again. Per Ana Maria she is refusing SNF and assisted living. Per Ana Maria patient will return home with her. Patient will need a fww on discharge. I offered Ana Maria a wheelchair and she refused. Per Ana Maria fww would be best for patient. Addendum: 03/30/20 at 1311 by Cielo MARISCAL Amended: Links added.
--- NOTE | 2020-03-30 13:11 | NUR ---
Dr. Huerta at the bedside, patient still at Radiology. Informed MD regarding after spoke to her daughter about D/C planning and her requested. MD recommended daughter working with SS for getting Home health, and received order for transfer to [facility]. Called back to Ana Maria, provided Insurance information per SS recommend to change patient's insurance and will follow up with HH in her area later, per her daughter, she already talked to SS.
--- NOTE | 2020-03-30 13:16 | NUR ---
Received a call from SS regarding discharge planning, will order DME per doctor requested.
--- NOTE | 2020-03-30 13:31 | NUR ---
Patient came back from Radiology, partial linen change.
--- NOTE | 2020-03-30 13:33 | NUR ---
I called [facility] [phone] and spoke with Kaitlyn-she said they have not received order yet-she also told me that it takes them up to 24-48 hours to receive a new order-and up to 5-7 business days for them to ship out supplies.
--- NOTE | 2020-03-30 15:15 | NUR ---
PT at the bedside.
--- NOTE | 2020-03-30 15:30 | NUR ---
Received a call from Ana Maria (daughter), password provided. Left the message to Dr. Huerta regarding Ana Maria would like to talk to again for D/C planning.
[2020-03-30 15:40] VITALS: BP 115/67
--- NOTE | 2020-03-30 15:40 | NUR ---
While patient working with PT, standing and using walker, HR 120-130/min, no complaining of pain, a little bit of nerveuse, room air O2 saturation 95-96%. Abdominal blinder in place while ambulatory. No N/v or dizziness noted. When resting on the bed, HR 95-100/min, SBP 110 mmHg, RR 16-18 /min, Room air O2 saturation 95-96%. Will continue to monitor and care.
--- NOTE | 2020-03-30 17:30 | NUR ---
Dinner tray provided, patient sitting up on the bed.
--- NOTE | 2020-03-30 17:35 | NUR ---
Called and spoke to Ana Maria (daughter) that patient will transfer to [address] and then transfer her phone into patient room.
--- NOTE | 2020-03-30 17:57 | NUR ---
MONTY pt transferred to floor [place], [place] transferred to [address] via hospital bed with special mattress on awake overnight monitor (Tele#[id number]) and room air. All patient medications and personal belongings transferred with patient to receiving floor. Patient care transferred to Cheyanne BRYANT.
--- NOTE | 2020-03-30 18:03 | NUR ---
Patient had around 50% of Dinner tray, no complaining of N/V noted. Will transfer to [address] at this time.
--- NOTE | 2020-03-30 18:20 | NUR ---
Assumed care of patient patient resting in bed with even and unlabored respirations on room air. Midline incision is well approximated with no drainage noted. 17 cassi intact. Incision open to air per MD order. Colostomy bag noted to Left side of abdomen. Minimal brown liquid output noted. JULIO CESAR drain removal site is clean, dry and intact with no drainage noted. Patient on speciality mattress per MD order. Patient reports having all personal belongings. Fall precautions in place with call light within reach. No distress noted.
--- NOTE | 2020-03-30 18:56 | NUR ---
Closing note Patient resting in bed with even and unlabored respirations, no distress noted. Fall precautions in place with call light within reach.
--- NOTE | 2020-03-30 19:14 | NUR ---
Care endorsed to MANNY Osorio.
--- NOTE | 2020-03-30 19:30 | NUR ---
Opening Shift Note Assumed care of patient, awake and alert x4. Patient denies pain or shortness of breath at this time. No sign/symptoms of distress noted or verbalized at this time. Instructed on plan of care and encouraged patient to call for assistance as needed, patient verbalized understanding. Incentive spirometer noted at the bedside, patient encouraged to use incentive spirometer at least 10 every hour while awake, patient verbalized understanding. Bed is locked in lowest position, side rails x 2 are up, call light is within reach, and bed alarm is on.
[2020-03-30] MEDS: ATORVASTATIN 20 MG TAB PO SCH (20:49)
[2020-03-30] MEDS: ACETAMINOPHEN/CODEINE#3 (300/30mg) TAB PO PRN (21:11)
[2020-03-30 22:00] VITALS: BP 126/68
--- NOTE | 2020-03-31 04:56 | NUR ---
Wound Care Cleansed patients sacrum with wound cleanser, patted dry, applied zgaurd, and placed Optifoam over sacrum. Patient tolerated well.
[2020-03-31 05:00] VITALS: BP 128/78
[2020-03-31] MEDS: metroNIDAZOLE 500MG/100ML 100 ML IV SCH (06:00)
[2020-03-31 06:03] LABS: Basophils # (auto) 0 10 ^3/uL (0-0.2); Basophils % (auto) 0.6 % (0.0-2.0); Eosinophils # (auto) 0.3 10 ^3/uL (0-0.8); Eosinophils % (auto) 4.3 % (0.0-7.0); Hematocrit 32.8 % (36.0-46.0); Hemoglobin 10.8 g/dL (12.2-16.2); Lymphocytes # (auto) 0.9 10 ^3/uL (0.4-5.4); Lymphocytes % (auto) 13.9 % (10.0-50.0); Mean Corpuscular Hemoglobin 27.2 pg (28.0-32.0); Mean Corpuscular Hgb Conc. 32.8 g/dL (32.0-36.0); Mean Corpuscular Volume 82.8 fL (80.0-100.0); Monocytes # (auto) 0.5 10 ^3/uL (0-1.3); Monocytes % (auto) 8.4 % (0.0-12.0); Neutrophils # (auto) 4.8 10 ^3/uL (1.6-8.6); Neutrophils % (auto) 72.8 % (37.0-80.0); Nucleated Red Blood Cells % 0.1 %; Platelet Count (auto) 349 10^3/uL (140-450); Red Blood Cells 3.96 10^6/uL (4.0-5.20); White Blood Cell 6.6 10^3/uL (4.4-10.8)
[2020-03-31 06:28] LABS: Calcium 8.4 mg/dL (8.5-10.1)
[2020-03-31 06:31] LABS: BUN/Creatinine Ratio 40.5
[2020-03-31 09:00] VITALS: BP 134/75
[2020-03-31] MEDS: CITALOPRAM HYDROBR 20 MG TAB PO SCH (09:20)
[2020-03-31] MEDS: levoFLOXacin 500MG 100 ML IV SCH (09:20)
[2020-03-31] MEDS: Glucerna Carbsteady SHAKE Stawberry 8oz PO SCH ×3 (09:20→18:18)
[2020-03-31] MEDS: FAMOTIDINE (10MG/ML) 2ML VL IV SCH (09:21)
[2020-03-31] MEDS: SODIUM CHLOR 0.9% PF (SALINE LOCK) 10ML VIAL/SYR IV SCH ×2 (09:21→22:20)
--- NOTE | 2020-03-31 09:30 | NUR ---
Opening Shift Note Assumed care of patient, awake and alert. No S/S of distress/SOB or pain. Efrain to the abdomen, dry and intact. Placed abdominal binder on, patient tolerated well. Instructed on POC and to call for assist PRN, will continue to monitor for changes Q1hr and PRN.
--- NOTE | 2020-03-31 11:44 | NUR ---
I called [facility] [phone] and spoke with Kaitlyn-she has not yet received the faxed order-she said that it takes up to 24-48 hours for them to receive the initial order. I opened up a case over the phone-provided her with contact information for Dr. Huerta (including his NPI number), exact order for specific colostomy supplies, and contact information for daughter Ana Maria as well as her address in [place]. Per Kaitlyn it will take up to 1 week for order to be shipped to daughter's house. I spoke with primary nurse and made her aware that patient needs to be sent home with at least a week's worth of colostomy supplies.
[2020-03-31] MEDS: ACETAMINOPHEN/CODEINE#3 (300/30mg) TAB PO PRN ×3 (11:51→22:01)
[2020-03-31] MEDS ORDERED: ENOXAPARIN SOD 40 MG/0.4 ML SYRINGE SC ONE (12:30)
[2020-03-31 13:00] VITALS: BP 145/78
--- NOTE | 2020-03-31 13:00 | NUR ---
Received a call from Tina regarding colostomy supplies will be delivered to patient's house in 1 week.
--- NOTE | 2020-03-31 14:47 | NUR ---
I placed a page out to Abner with physical therapy to ask him to assess patient for safety of her going home with walker. I also spoke with patient's nurse and requested that an order be placed for bedside commode, home health for nursing and physical therapy as well as a home health aide.
--- NOTE | 2020-03-31 15:00 | NUR ---
PT gets patient to the chair.
--- NOTE | 2020-03-31 15:37 | NUR ---
Left a message to patient's daughter regarding arrangement colostomy teaching and PT training. Awaiting to call back.
--- NOTE | 2020-03-31 16:23 | NUR ---
D/C planning Per SS consult for walker, wheelchair and bedside commode. Clinical information was reviewed and approved by [facility]. Faxed clinical information to [facility] requesting for medical equipment to be deliver to the front lobby and Manage care. Per Kera with [facility] they will deliver to front lobby.
--- NOTE | 2020-03-31 16:30 | NUR ---
Patient stated PT left her in the chair more than an hour and she wanted to get another PT tomorrow. Will talk to Abner.
[2020-03-31 17:00] VITALS: BP_SYST 112; BP_SYST 145; BP_DIAS 66; BP_DIAS 78
--- NOTE | 2020-03-31 19:43 | NUR ---
Opening Shift Note Assumed care of patient, awake and alert. No S/S of distress/SOB or pain. Instructed on POC and to call for assist PRN, will continue to monitor for changes Q1hr and PRN. bed in low position and call light within reach. fall precaution in place.
[2020-03-31 22:00] VITALS: BP 123/71
[2020-03-31] MEDS: ATORVASTATIN 20 MG TAB PO SCH (22:01)
--- NOTE | 2020-03-31 22:01 | NUR ---
pain pain 5/10 to abd aching. patient medicated for pain.
--- NOTE | 2020-03-31 23:01 | NUR ---
pain reassessment patient sleeping no signs of sob distress or pain. bilateral chest rise and fall
--- NOTE | 2020-04-01 04:56 | NUR ---
patient positioned to comfort denies sob distress or pain
[2020-04-01 05:00] VITALS: BP 124/66
--- NOTE | 2020-04-01 07:09 | NUR ---
endorsed care to dayshift rn patient denies sob distress or pain
[2020-04-01 09:00] VITALS: BP 111/65
[2020-04-01] MEDS: FAMOTIDINE (10MG/ML) 2ML VL IV SCH (09:25)
[2020-04-01] MEDS: SODIUM CHLOR 0.9% PF (SALINE LOCK) 10ML VIAL/SYR IV SCH ×2 (09:26→21:26)
[2020-04-01] MEDS: CITALOPRAM HYDROBR 20 MG TAB PO SCH (09:26)
[2020-04-01] MEDS: ENOXAPARIN SOD 30 MG/0.3 ML SYRINGE SC SCH (09:26)
[2020-04-01] MEDS: Glucerna Carbsteady SHAKE Stawberry 8oz PO SCH ×3 (09:26→18:27)
--- NOTE | 2020-04-01 09:35 | NUR ---
I spoke with charge nurse Cristin regarding daughter coming to bedside for colostomy and PT teaching. Per Cristin daughter does not want to come in for the teaching until day of discharge. I called Dr. Huerta to discuss the plan of care for patient (per Cristin he is not going to discharge patient until she is walking)-no answer. I called Physical Therapy and spoke with Denise and asked that they work aggressively with patient twice daily.
--- NOTE | 2020-04-01 10:50 | NUR ---
Abernathy catheter dc'd Order to discontinue abernathy catheter. Abernathy dc'd with clean technique following deflation of balloon. Patient tolerated well with no complaints of pain. Continue care.
--- NOTE | 2020-04-01 11:20 | NUR ---
WOUND CARE NOTE: IN TO SEE PATIENT AT THIS TIME FOR SKIN INTEGRITY. PATIENT HAS CURRENT VANESSA SCORE OF 17. PATIENT CAN SELF TURN/REPOSITION SELF. PATIENT CONTINUES TO DISPLAY MASD TO THE SACRUM/BUTTOCKS, WITH DARK RED, FLAKING SKIN NOTED. THERE IS AN INTERTRIGINOUS RASH OVER THE MASD, FROM SACRUM TO UPPER POSTERIOR THIGHS. PATIENT WOULD BENEFIT FROM SWITCHING TO ANTIFUNGAL CLEAR BARRIER CREAM FROM ZGUARD. SKIN/WOUND CARE PLAN UPDATED. RECOMMEND: ANTIFUNGAL CLEAR BARRIER CREAM TO SACRUM/BUTTOCKS, PERINEUM, AND BILATERAL UPPER POSTERIOR THIGHS, OPTIFOAM GENTLE SACRAL DRESSING TO UPPER MEDIAL SACRUM, CONTINUATION WITH ALL OTHER WOUND CARE ORDERS PREVIOUSLY PRESCRIBED BY MD. WOUND CARE TEAM WILL CONTINUE TO MONITOR. Addendum: 04/01/20 at 1617 by Melissa Burns RN Amended: Links added.
--- NOTE | 2020-04-01 11:22 | NUR ---
Left a message to Ana Maria regarding colostomy teaching and DC planning. Awaiting to call back.
--- NOTE | 2020-04-01 12:46 | NUR ---
Nutrition Followup Notes Wt: 62.3 kg Pt sleeping when rounded this am. Per records pt with diverticular perforation s/p colostomy. Pt is now advanced to M.soft diet with Glucerna 1 carton tid with inadequate PO of < 50% x5 per RN doc Est Energy needs BW 50 [id number] kcals (25-30 kcal/kgBW), Est Protein needs: 50-60gms/day (1.0-1.2 gm/kgBW). reassessed Will continue to monitor and reassess prn. LABS: CA 8.4 L GI: Pt is now with a colostomy, with 25ml gastric output on 03/30 per RN doc BS: 15 mod risk. Refer to wound assessment report for full details. PES: 1) Increased nutrient needs aeb pt is NPO r/t pt with no PO intake 2) Inadequate oral intake aeb pt wt. loss of >10lbs in 1 month r/t pt loss of appetite, immobility and continued constipation Comments: Will continue to monitor PO intake, skin status, pertinent labs and weight trends. Will f/u in 3-5 days. 1) continue assistance with meals. 2)Continue current plan of care
[2020-04-01 13:00] VITALS: BP 120/62
--- NOTE | 2020-04-01 13:00 | NUR ---
Spoke to Ana Maria (pt's daughter) stated will come around 9 AM for colostomy and PT training.
--- NOTE | 2020-04-01 14:25 | NUR ---
Patient urinated clear yellow urine.
[2020-04-01 17:00] VITALS: BP 130/68
--- NOTE | 2020-04-01 19:15 | NUR ---
Opening Shift Note Assumed care of patient from day shift RN, patient awake and alert and oriented x4. No S/S of distress/SOB or pain. Instructed on POC and to call for assist PRN, safety measures in place bed in lowest position, side rails up x2 and call light in reach. will continue to monitor for changes Q1hr and PRN.
[2020-04-01] MEDS: ATORVASTATIN 20 MG TAB PO SCH (21:25)
[2020-04-01] MEDS: ACETAMINOPHEN/CODEINE#3 (300/30mg) TAB PO PRN (21:26)
--- NOTE | 2020-04-01 21:26 | NUR ---
pain medication Patient stated 8/10 pain to lower abdomen requesting tylenol with codeine. Tylenol with codeine administered at this time.
[2020-04-01 22:00] VITALS: BP 128/84
--- NOTE | 2020-04-01 22:26 | NUR ---
pain reassessment Patient was reassessed for pain at this time patient stated 0/10 pain.
[2020-04-02 05:00] VITALS: BP 119/72
--- NOTE | 2020-04-02 07:13 | NUR ---
Endorsed care to day shift RN. No distress, sob or pain. safety measures in place bed in lowest position, side rails up x2, and call light with in reach.
--- NOTE | 2020-04-02 07:30 | NUR ---
Opening Shift Note RECEIVED REPORT FROM NOC RN. Assumed care of patient, awake and alert. No S/S of distress/SOB or pain. BED IN LOWEST, LOCKED POSITION WITH SIDERAILS UP x2 AND CALL LIGHT WITHIN REACH. Instructed on POC and to call for assist PRN, will continue to monitor for changes Q1hr and PRN.
--- NOTE | 2020-04-02 08:56 | NUR ---
D/C Planning Per Leeann [facility] authorized home health. Faxed clinical information to [facility] . Per Luisa with Leeann they will accept patient once letter of agreement has been received by health plan. Placed follow up called to [facility], spoke to Yanet. Per Yanet they will deliver medical equipment once they discuss with patient the co-pay. Advised Yanet to contact patient daughter Ana Maria .
[2020-04-02 09:00] VITALS: BP 144/75
--- NOTE | 2020-04-02 09:13 | NUR ---
PHYSICAL THERAPY AND FAMILY AT BEDSIDE.
[2020-04-02] MEDS: SODIUM CHLOR 0.9% PF (SALINE LOCK) 10ML VIAL/SYR IV SCH (11:04)
[2020-04-02] MEDS: ENOXAPARIN SOD 30 MG/0.3 ML SYRINGE SC SCH (11:04)
[2020-04-02] MEDS: CITALOPRAM HYDROBR 20 MG TAB PO SCH (11:04)
[2020-04-02] MEDS: Glucerna Carbsteady SHAKE Stawberry 8oz PO SCH (11:04)
[2020-04-02] MEDS: FAMOTIDINE (10MG/ML) 2ML VL IV SCH (11:04)
[2020-04-02 13:00] VITALS: BP 135/77
--- NOTE | 2020-04-02 13:51 | NUR ---
D/C Planning Placed follow up called to Renate with [facility] for updates regarding delivery time of equipment. Per Renate equipment will be deliver to front lobby between 3-4:30pm. Informed patient daughter and MANNY Galindo.
[2020-04-02 14:07] VITALS: BP 135/77
--- NOTE | 2020-04-02 14:18 | NUR ---
TELE BOX SENT BACK TO ICU AT THIS TIME VIA [employer]. Addendum: 04/02/20 at 1702 by PHIL SNYDER RN RN *CORRECT TIME [id number].
--- NOTE | 2020-04-02 16:20 | NUR ---
Discharge instructions given as ordered. Encourage to follow up with PMD as instructed. All questions and concerns addressed. Patient verbalized understanding. Medication reconciliation form completed and copy given to patient. IV removed with catheter intact, pressure dressing applied. Telemetry unit returned to ICU. Patient taken to vehicle via wheelchair with all personal belongings, accompanied by staff. No distress noted at time of departure.
== END 2020-04-02 16:18 | disposition home health service (06) | DRG 329 ==
LOC: ER 12:06 → TELE 17:54 → TELE-CENTR 22:37 → ICU WEST 03-23 15:42 → DOU IN ICU 03-27 17:18 → TELE-CENTR 03-30 18:20 → UNDODISIN 03-31 19:03
PROVIDERS: ADMIT Hospitalist; ATTEND Internal Medicine
PROC: 02HV33Z Insertion of Infusion Device into Superior Vena Cava, Percutaneous Approach (ICD-10-PCS; 2020-03-10)
PROC: 3E0336Z Introduction of Nutritional Substance into Peripheral Vein, Percutaneous Approach (ICD-10-PCS; principal; 2020-03-12)
PROC: 0DTN0ZZ Resection of Sigmoid Colon, Open Approach (ICD-10-PCS; 2020-03-23)
PROC: 0D1M0Z4 Bypass Descending Colon to Cutaneous, Open Approach (ICD-10-PCS; 2020-03-23)
PROC: 0TQB0ZZ Repair Bladder, Open Approach (ICD-10-PCS; 2020-03-23)
PROC: 0DBP0ZZ Excision of Rectum, Open Approach (ICD-10-PCS; 2020-03-23)
PROC: 0T9B70Z Drainage of Bladder with Drainage Device, Via Natural or Artificial Opening (ICD-10-PCS; 2020-03-23)
PROC: 5A1935Z Respiratory Ventilation, Less than 24 Consecutive Hours (ICD-10-PCS; 2020-03-23)
PROC: 0BH17EZ Insertion of Endotracheal Airway into Trachea, Via Natural or Artificial Opening (ICD-10-PCS; 2020-03-23)
PROC: 0D9670Z Drainage of Stomach with Drainage Device, Via Natural or Artificial Opening (ICD-10-PCS; 2020-03-23)
DX: K57.20 Diverticulitis of large intestine with perforation and abscess without bleeding (principal); K68.19 Other retroperitoneal abscess; J96.01 Acute respiratory failure with hypoxia; E87.1 Hypo-osmolality and hyponatremia; Z68.1 Body mass index [BMI] 19.9 or less, adult; N32.1 Vesicointestinal fistula; E44.0 Moderate protein-calorie malnutrition; N30.00 Acute cystitis without hematuria; F12.90 Cannabis use, unspecified, uncomplicated; E78.5 Hyperlipidemia, unspecified; K59.04 Chronic idiopathic constipation; N28.1 Cyst of kidney, acquired; I71.2 Thoracic aortic aneurysm, without rupture; E87.6 Hypokalemia; F32.9 Major depressive disorder, single episode, unspecified; K59.09 Other constipation; K66.0 Peritoneal adhesions (postprocedural) (postinfection); M06.9 Rheumatoid arthritis, unspecified; F17.210 Nicotine dependence, cigarettes, uncomplicated; I08.3 Combined rheumatic disorders of mitral, aortic and tricuspid valves; I70.0 Atherosclerosis of aorta; L40.9 Psoriasis, unspecified; Z80.1 Family history of malignant neoplasm of trachea, bronchus and lung; Z80.51 Family history of malignant neoplasm of kidney; Z90.49 Acquired absence of other specified parts of digestive tract; Z90.710 Acquired absence of both cervix and uterus; Z80.8 Family history of malignant neoplasm of other organs or systems; Z80.3 Family history of malignant neoplasm of breast; Z79.899 Other long term (current) drug therapy; I95.9 Hypotension, unspecified
CPT/HCPCS: 36415; 36569; 36600; 71045; 72192; 74018; 74176; 74177; 74250; 74270; 74430; 80048; 80053; 80061; 80307; 81001; 82040; 82150; 82378; 82805; 82962; 83036; 83605; 83690; 83735; 84100; 84478; 84484; 85025; 85610; 85730; 86850; 86900; 86901; 87040; 87070; 87086; 87205; 93005; 93306; 94002; 94003; 96365; 96368; 96375; 97110; 97116; 97530; G0378; J0696; J1100; J1815; J1956; J2001; J2250; J2405; J2704; J3480; J3490; J7131; P9047